=== PATIENT | male | born 1960 | race Caucasian/White ===

== ENCOUNTER 2021-07-18 18:28 | Inpatient (IN) | payer BC, OTHER ==
[~2021-07-18] VITALS: Ht 172.7 cm; Wt 88.8 kg
[2021-07-18] MEDS ORDERED: NS 2,730 ML in IV 1 EA IV ONE (19:30)
[2021-07-18] MEDS ORDERED: PIPERACILLIN/TAZOBACTAM SOD 4.5 GM in D5W MINI-BAG PLUS 50 ML IV ONE (19:30)
[2021-07-18 19:50] LABS: BASO # 0.1 10^3/uL (0.0-0.2); BASO % 0.4 % (0.0-1.0); EOS # 0.1 10^3/uL (0.0-0.5); EOS % 0.3 % (0.0-3.0); HEMATOCRIT 41.1 % (42.0-52.0); LYMPH # 0.4 10^3/uL (1.5-5.0); LYMPH % 2.3 % (24.0-44.0); MEAN CORPUSCULAR HEMOGLOBIN 31.7 pg (27.0-33.0); MEAN CORPUSCULAR HGB CONC 36.5 g/dl (32.0-36.5); MEAN CORPUSCULAR VOLUME 86.9 fl (80.0-96.0); MONO # 2.8 10^3/uL (0.0-0.8); MONO % 14.7 % (2.0-8.0); NEUTROPHILS # 15.4 10^3/uL (1.5-8.5); NEUTROPHILS % 80.9 % (36.0-66.0); PLATELET COUNT, AUTOMATED 364 10^3/uL (150-450); RED BLOOD COUNT 4.73 10^6/uL (4.30-6.10)
[2021-07-18 19:51] LABS: VENOUS BASE EXCESS -6.2 (-2.0-2.0); VENOUS HCO3 18.4 MEQ/L (23.0-27.0); VENOUS O2 SATURATION 73.9 % (60.0-80.0); VENOUS PARTIAL PRESSURE CO2 33.9 mmHg (38.0-50.0); VENOUS PARTIAL PRESSURE O2 35.5 mmHg (30.0-50.0); VENOUS PH 7.352 UNITS (7.330-7.430); VENOUS STANDARD HCO3 18.9 MEQ/L; VENOUS TOTAL CO2 19.4 MEQ/L (24.0-28.0)
--- NOTE | 2021-07-18 20:02 | REP ---
INDICATION: SEPSIS/SHOCK COMPARISON: None. TECHNIQUE: Portable AP view of the chest FINDINGS: The mediastinum and cardiac silhouette are within normal limits for portable technique. The lung izaguirre are clear without acute consolidation, effusion, or pneumothorax. Skeletal structures are intact. IMPRESSION: No acute cardiopulmonary process appreciated. <Electronically signed by Tom Fagan > 07/18/211958
--- NOTE | 2021-07-18 20:04 | REP ---
INDICATION: fall, infection COMPARISON: None. TECHNIQUE: AP and lateral right foot radiographs FINDINGS: Soft tissue swelling and significant subcutaneous emphysema primarily involving the medial aspect of the foot and surrounding the 1st toe. Findings are consistent with cellulitis/infectious process. Underlying osseous structures are grossly intact and without obvious acute fracture or dislocation. IMPRESSION: Soft tissue swelling and extensive subcutaneous emphysema along the medial aspect of the foot and primarily surrounding the 1st toe consistent with cellulitis/infectious process. <Electronically signed by Tom Fagan > 07/18/211999
[2021-07-18 20:13] LABS: INR 1.27; PROTHROMBIN TIME 16.3 SECONDS (12.7-14.5)
[2021-07-18 20:14] LABS: PARTIAL THROMBOPLASTIN TIME 33.1 SECONDS (25.9-37.0)
[2021-07-18 20:17] LABS: ERYTHROCYTE SEDIMENTATION RATE 61 mm/hr (0-20)
[2021-07-18 20:26] LABS: APPEARANCE, URINE HAZY (CLEAR); BACTERIA, URINE AUTO 1+ (NEGATIVE); BILIRUBIN, URINE AUTO NEGATIVE (NEGATIVE); BLOOD, URINE BLOOD 2+ (NEGATIVE); COLOR, URINE YELLOW (YELLOW); GLUCOSE, URINE (UA) AUTO 3+ mg/dL (NEGATIVE); KETONE, URINE AUTO 2+ mg/dL (NEGATIVE); LEUKOCYTE ESTERASE, URINE AUTO 2+ (NEGATIVE); NITRITE, URINE AUTO NEGATIVE (NEGATIVE); PROTEIN, URINE AUTO 2+ mg/dL (NEGATIVE); RBC, URINE AUTO 17 /HPF (0-3); SPECIFIC GRAVITY URINE AUTO 1.032 (1.002-1.035); SQUAMOUS EPITHELIAL CELL UR AU 1 /HPF (0-6); WBC, URINE AUTO 20 /HPF (0-3)
[2021-07-18 20:33] LABS: ALBUMIN 2.4 GM/DL (3.2-5.2); ALT/SGPT 28 U/L (12-78); AMYLASE 15 U/L (25-115); BILIRUBIN,DIRECT 0.4 MG/DL (0.0-0.2); BILIRUBIN,TOTAL 0.8 MG/DL (0.2-1.0); BLOOD UREA NITROGEN 17 MG/DL (7-18); CALCIUM LEVEL 9.1 MG/DL (8.8-10.2); CARBON DIOXIDE LEVEL 20 MEQ/L (21-32); CHLORIDE LEVEL 100 MEQ/L (98-107); CK-MB VALUE MASS < 1.0 NG/ML (<3.6); CPK CREATINE PHOSPHOKINASE 37 U/L (39-308); CREATININE FOR GFR 0.97 MG/DL (0.70-1.30); GLOMERULAR FILTRATION RATE > 60.0 (>49); GLUCOSE, FASTING 327 MG/DL (70-100); POTASSIUM SERUM 4.4 MEQ/L (3.5-5.1); SODIUM LEVEL 133 MEQ/L (136-145); TOTAL PROTEIN 6.5 GM/DL (6.4-8.2); TROPONIN I < 0.02 NG/ML (< 0.10)
[2021-07-18 20:56] LABS: HEMOGLOBIN A1c 10.2 %
[2021-07-18 21:00] LABS: RSV AMPLIFICATION NEGATIVE (NEGATIVE)
[2021-07-18] MEDS ORDERED: BOOSTRIX/ADACEL VACCINE (DIPHTH/PERTUSS/ACELL/TETANUS) 0.5ML SYR IM ONE (21:25)
[2021-07-18] MEDS ORDERED: HOME MED LIST COMPLETE! XX SCH (21:55)
[2021-07-18] MEDS ORDERED: KETOROLAC 30 MG/ML 1ML VIAL IV PRN (22:00)
[2021-07-18] MEDS ORDERED: ONDANSETRON 4MG/2ML VIAL IV PRN (22:00)
[2021-07-18] MEDS ORDERED: GLUCOSE 4GM CHEW TABLET PO PRN (22:00)
[2021-07-18] MEDS ORDERED: DEXTROSE 50% 50 ML SYRINGE IV PRN (22:00)
[2021-07-18] MEDS ORDERED: MORPHINE 4 MG/ML 1ML VIAL/SYRINGE (J2270) IV PRN (22:00)
[2021-07-18] MEDS ORDERED: GLUCAGON INJ 1MG VIAL SC PRN (22:00)
[2021-07-18] MEDS ORDERED: VANCOMYCIN HCL 1,000 MG, VIAL MATE ADAPTER 1 EACH in NS 250 ML IV SCH (22:00)
[2021-07-18] MEDS ORDERED: MOM 30ML SUSPENSION UDC PO PRN (22:00)
[2021-07-18] MEDS ORDERED: MAALOX 30 ML SUSP *UDC PO PRN (22:00)
--- NOTE | 2021-07-18 22:08 | HPEPDOC ---
[facility] Medical History & Physical Date of Admission Jul 18, 2021 Date of Service: Jul 18, 2021 Attending Physician: AYESHA SNYDER MD History and Physical CHIEF COMPLAINT: [60 y/o male presents to ED after falling, c/o right foot and b/l knee pain] HISTORY OF PRESENT ILLNESS: [This is a 60 y/o male with no pmh who does not follow with a pcp who presents to our ED after a fall in which he could not get back up. Patient tells me that he has had several falls in the past few weeks that he believes are mechanical in nature. Patient states that after he fell today at work, he was not able to get up d/t severe pain in his knees, and thus EMS was called to bring him to our emergency department. Patient tells me that he has also noticed a wound on his right foot that began about a week ago but opened up approx 2 days ago. Patient states that the wound itself is not very painful and again restates that his pain is mostly in his knees. Patient admits to associated fevers, anorexia. Patient denies any chills, uri type sx, abd pain, n/v/d/c, paresthesias. Patient found to be septic in the ED with temp of 102.4, pulse in the 120s, leukocytosis of 19, lactic acidosis of 2.2, and obviously infected right foot ulcer. A1C drawn in the ED 10.2. ] PAST MEDICAL HISTORY: 1. [None - does not follow with pcp PAST SURGICAL HISTORY: 1. [None SOCIAL HISTORY: Tobacco use:[Denies] ETOH: [Occasional] Illicit drug use: [Denies] FAMILY HISTORY: Reviewed - none pertinent ALLERGIES: Please see below. REVIEW OF SYSTEMS: CONSTITUTIONAL: [See HPI]. HEENT: [Denies uri sx]. CARDIOVASCULAR: [Denies chest pain, palpitations]. RESPIRATORY: [Denies sob, wheezing]. GASTROINTESTINAL: [Denies abd pain, n/v/d/c]. GENITOURINARY: [Denies dysuria]. SKIN: [See HPI]. MUSCULOSKELETAL: [See HPI]. NEUROLOGICAL: [Denies syncope, paresthesias]. ENDOCRINE: [A1C in the ED 10.2]. HEMATOLOGIC/LYMPHATIC: [Denies hx of vte]. HOME MEDICATIONS: Please see below. PHYSICAL EXAMINATION: VITAL SIGNS: Please see below. GENERAL APPEARANCE: [This is an overweight 60 y/o male who is alert and oriented to all questioning. He does not appear to be in any distress.]. HEENT: [No mass or lesion. EOMI. No scleral icterus. Nares patent. Poor dentition. Oral mucosa moist.]. CARDIOVASCULAR: [Tachy rate, regular rhythm. No murmurs, rubs, gallops]. LUNGS: [Good air flow b/l. No wheezing, rales, rhonchi]. ABDOMEN: [Soft, nontender]. MUSCULOSKELETAL: [No joint deformity]. EXTREMITIES: [There is a large ulcer located on the medial side of the 1st MTP joint of the right foot. The ulcer is covered with black colored eschar and has some foul smelling serosanguineous discharge. The 1st and 2nd toes of the right foot are pallorous and the dital ends of the toes are purple. There is deep erythema of the foot surrounding the wound that has been marked with purple marker. The area is warm and tender. There is edema of the RLE. Pulses intact. ]. NEUROLOGICAL: [Speech clear. A+Ox3. No focal deficits.]. PSYCHIATRIC: [Mood and affect appear appropriate.]. LABORATORY DATA: See below. IMAGING: [CXR: FINDINGS: The mediastinum and cardiac silhouette are within normal limits for portable technique. The lung izaguirre are clear without acute consolidation, effusion, or pneumothorax. Skeletal structures are intact. IMPRESSION: No acute cardiopulmonary process appreciated. Toe XR: FINDINGS: Soft tissue swelling and significant subcutaneous emphysema primarily involving the medial aspect of the foot and surrounding the 1st toe. Findings are consistent with cellulitis/infectious process. Underlying osseous structures are grossly intact and without obvious acute fracture or dislocation. IMPRESSION: Soft tissue swelling and extensive subcutaneous emphysema along the medial aspect of the foot and primarily surrounding the 1st toe consistent with cellulitis/infectious process.] MICROBIOLOGY: Please see below. ASSESSMENT: [This is a 60 y/o male with no pmh who does not follow with a pcp who presents to our ED after a fall in which he could not get back up. Patient tells me that he has had several falls in the past few weeks that he believes are mechanical in nature. Patient found to be septic in the ED with temp of 102.4, pulse in the 120s, leukocytosis of 19, lactic acidosis of 2.2, and obviously infected right foot ulcer. A1C drawn in the ED 10.2.]. . PLAN: 1. [Sepsis 2/2 infected diabetic foot ulcer - Patient received 30cc/kg fluid bolus and one dose of zosyn in the ed - Will continue ivf on the floor - Vanco and zosyn for coverage for now pending mrsa pcr, wound cultures - Dr. Graham, podiatry, has been consulted by ED provider and plans to take patient to the OR in the morning for possible amputation - NPO after midnight - Toradol, morphine for pain - Zofran for nausea - Admit to pcu w tele for tx 2. Newly diagnosed DM - Patient's A1C 10.2 in the ED - Will be placed on sliding scale/hypoglycemic protocol while in the hospital - Patient will need to be dc'ed on oral antihyperglycemics and likely basal insulin and establish with a pcp outpatient 3. Recurrent falls - Potentially d/t diabetic neuropathy - PT/OT post op 4. Asymptomatic bacteruria - patient has +UA, however no symptoms - will unintentionally be covered by broad spectrum abx DVT prophylaxis - mechanical pre-op]. Vital Signs Vital Signs Date Time Temp Pulse Resp B/P (MAP) Pulse Ox O2 Delivery O2 Flow Rate FiO2 07/18/21 21:15 99.3 114 19 130/77 (94) 96 Laboratory Data Labs 24H Laboratory Tests 2 07/18/21 19:35: Coronavirus (COVID-19)(PCR) NEGATIVE, Influenza Type A (RT-PCR) NEGATIVE, Influenza Type B (RT-PCR) NEGATIVE, Respiratory Syncytial Virus (PCR) NEGATIVE 07/18/21 19:37: Immature Granulocyte % (Auto) 1.4, Neutrophils (%) (Auto) 80.9H, Lymphocytes (%) (Auto) 2.3L, Monocytes (%) (Auto) 14.7H, Eosinophils (%) (Auto) 0.3, Basophils (%) (Auto) 0.4, Neutrophils # (Auto) 15.4H, Lymphocytes # (Auto) 0.4L, Monocytes # (Auto) 2.8H, Eosinophils # (Auto) 0.1, Basophils # (Auto) 0.1, Nucleated Red Blood Cells % (auto) 0.0, Erythrocyte Sedimentation Rate 61H, Prothrombin Time 16.3H, Prothromb Time International Ratio 1.27, Activated Partial Thromboplast Time 33.1, Blood Gas Bicarbonate Standard 18.9, Venous Blood pH 7.352, Venous Blood Partial Pressure CO2 33.9L, Venous Blood Partial Pressure O2 35.5, Venous Blood Total Carbon Dioxide 19.4L, Venous Blood HCO3 18.4L, Venous Blood Oxygen Saturation 73.9, Venous Blood Base Excess -6.2L, Anion Gap 13, Glomerular Filtration Rate > 60.0, Estimated Mean Plasma Glucose 246H, Hemoglobin A1c 10.2, Lactic Acid Level 2.2*H, Calcium Level 9.1, Total Bilirubin 0.8, Direct Bilirubin 0.4H, Aspartate Amino Transf (AST/SGOT) 18, Alanine Aminotransferase (ALT/SGPT) 28, Alkaline Phosphatase 133H, Total Creatine Kinase 37L, Creatine Kinase MB < 1.0, Creatine Kinase MB Relative Index 2.70, Troponin I < 0.02, C- Reactive Protein, Quantitative 36.50H, Total Protein 6.5, Albumin 2.4L, Albumin/Globulin Ratio 0.6, Amylase Level 15L 07/18/21 19:47: Urine Color YELLOW, Urine Appearance HAZY, Urine pH 6.0, Urine Specific Hyde 1.032, Urine Protein 2+H, Urine Glucose (Auto)(UA) 3+H, Urine Ketones (Auto) 2+H, Urine Blood 2+H, Urine Nitrite NEGATIVE, Urine Bilirubin NEGATIVE, Urine Urobilinogen 2.0H, Urine Leukocyte Esterase (Auto) 2+H, Urine WBC (Auto) 20H, Urine RBC (Auto) 17H, Urine Hyaline Casts (Auto) 0, Urine Bacteria (Auto) 1+H, Urine Squamous Epithelial Cells 1, Urine Yeast-Like Cells (Auto) SMALLH, Urine Sperm (Auto) CBC/BMP Laboratory Tests 07/18/21 19:37 Microbiology Microbiology 07/18/21 Urine Culture, Received Pending 07/18/21 Blood Culture, Received Pending 07/18/21 Blood Culture, Received Pending Home Medications No Active Prescriptions or Reported Meds Allergies Coded Allergies: No Known Allergies (Verified Allergy, Unknown, 07/18/21) A-FIB/CHADSVASC A-FIB History Current/History of A-Fib/PAF?: No DOT ALEXANDRE Jul 18, 2021 22:08
[2021-07-18] MEDS: DOCUSATE SODIUM 100MG CAPSULE PO SCH (22:54)
[2021-07-18] MEDS ORDERED: VANCOMYCIN HCL 1,000 MG, VIAL MATE ADAPTER 1 EACH in NS 250 ML IV ONE (23:00)
[2021-07-18] MEDS: NS 1,000 ML IV SCH (23:00)
[2021-07-19] VITALS (9 sets, daily range): BP systolic 106–137; BP diastolic 63–91
[2021-07-19] MEDS ORDERED: VANCOMYCIN HCL 750 MG, VIAL MATE ADAPTER 1 EACH in NS 250 ML IV ONE ×3
[2021-07-19] MEDS: HumaLOG INSULIN (NovoLOG) PER UNIT SC SCH ×4 (00:25→18:00)
[2021-07-19] MEDS: PIPERACILLIN/TAZOBACTAM SOD 3.375 GM in D5W MINI-BAG PLUS 50 ML IV SCH ×4 (02:43→20:00)
[2021-07-19] MEDS: ACETAMINOPHEN TAB 650MG DOSE (2X325MG) PO PRN (03:04)
--- NOTE | 2021-07-19 05:35 | ECGEPIP ---
[facility] - ED Test Date: 2021-07-18 Pat Name: NILDA TRAN Department: Room: - Gender: Male Throw Out Clerk: : 1960 Requested By: DELANEY Hood Order Number: [id number] Reading MD: Otilio Flood Measurements Intervals Lag[place] Rate: 116 P: 50 ME: 162 QRS: -48 QRSD: 80 T: 10 QT: 324 QTc: 450 Interpretive Statements Sinus tachycardia Left axis deviation Low voltage QRS Septal infarct , age undetermined Inferior infarct , age undetermined NO PRIORS FOR COMPARISON Electronically Signed on 07-19-2021 5:34:37 EDT by Otilio Flood
[2021-07-19 05:40] LABS: HEMATOCRIT 36.9 % (42.0-52.0); HEMOGLOBIN 13.1 g/dl (13.5-17.5); MEAN CORPUSCULAR HEMOGLOBIN 31.6 pg (27.0-33.0); MEAN CORPUSCULAR HGB CONC 35.5 g/dl (32.0-36.5); MEAN CORPUSCULAR VOLUME 88.9 fl (80.0-96.0); PLATELET COUNT, AUTOMATED 335 10^3/uL (150-450); RED BLOOD COUNT 4.15 10^6/uL (4.30-6.10); WHITE BLOOD COUNT 17.7 10^3/uL (4.0-10.0)
[2021-07-19 06:12] LABS: BLOOD UREA NITROGEN 15 MG/DL (7-18); CALCIUM LEVEL 8.3 MG/DL (8.8-10.2); CARBON DIOXIDE LEVEL 13 MEQ/L (21-32); CHLORIDE LEVEL 112 MEQ/L (98-107); CREATININE FOR GFR 0.62 MG/DL (0.70-1.30); GLOMERULAR FILTRATION RATE > 60.0 (>49); GLUCOSE, FASTING 201 MG/DL (70-100); MAGNESIUM LEVEL 2.4 MG/DL (1.8-2.4); POTASSIUM SERUM 3.7 MEQ/L (3.5-5.1); SODIUM LEVEL 141 MEQ/L (136-145)
[2021-07-19] MEDS: NS 1,000 ML IV SCH ×2 (07:00→12:40)
--- NOTE | 2021-07-19 08:11 | IPN ---
PROGRESS NOTE DATE: 07/19/2021 SUBJECTIVE: The patient was febrile with 101.5 at 3 a.m. He denies any pain but there continues to be a malodorous discharge from the right foot, which is gangrenous. No chest pain, pressure, tightness, shortness of breath despite tachycardia. Patient denies any palpitations, lightheadedness or dizziness. OBJECTIVE: Vital signs: Temperature maximum 101.5, pulse 108, respiratory 20, blood pressure 117/65, 94% on room air. GENERAL: Patient is awake, alert, oriented to person, place and time. Disheveled appearing. Missing teeth, poor dentition. Dry mucous membranes with chapped lips. HEENT: No jugular venous distension (JVD), thyromegaly or cervical lymphadenopathy. LUNGS: Clear to auscultation with no wheezing, rales or rhonchi. HEART: S1, S2; sinus rhythm. ABDOMEN: Soft, nontender, nondistended. Positive bowel sounds. EXTREMITIES: No cyanosis. Patient's right foot has a significant amount of gangrene measuring about 4.5 x 3.5 cm on the right medial aspect at the base of the right first metatarsophalangeal (MTP) joint which is malodorous with cyanosis and bluish-purplish discoloration of the right foot, of the right big toe. Right foot has erythema up to the mid dorsal area with significant tenderness at the plantar aspect. LABORATORY DATA: Microbiology and imaging studies have been reviewed; please see the chart. ASSESSMENT AND PLAN: This is a 60-year-old male status post a fall, found to be septic with a temperature of 102.4, pulse 120 and leukocytosis of 19 with an infected right big toe gangrene and cellulitis of the right foot. IMPRESSION: 1. Infected right first metatarsophalangeal (MTP) joint, gangrene, diabetic foot infection with ulcer. Patient has been kept NPO overnight. Dr. Graham, nursing instructor, has been consulted for amputation, most likely transmetatarsal due to involvement of the dorsum of the foot. He is currently on IV vancomycin and Zosyn. Methicillin-resistant staph aureus (MRSA) screen is pending. On IV fluids and NPO; Toradol and morphine as needed for pain, antiemetics with Zofran as needed. 2. New-onset diabetes with A1c of 10.2 on sliding scale; hyperglycemic protocol, NPO for now, on IV fluids to prevent hyperglycemia. 3. Recurrent falls most likely secondary to neuropathy. 4. Asymptomatic bacteruria currently on vancomycin and Zosyn for gangrene diabetic foot infection of the first metatarsophalangeal (MTP) and right foot.
[2021-07-19] MEDS: DOCUSATE SODIUM 100MG CAPSULE PO SCH ×2 (09:00→21:24)
[2021-07-19] MEDS: VANCOMYCIN HCL 750 MG, VIAL MATE ADAPTER 1 EACH in NS 250 ML IV SCH ×2 (11:20→21:25)
[2021-07-19] MEDS: VANCOMYCIN HCL 500 MG in D5W MINI-BAG PLUS 100 ML IV SCH (12:40)
[2021-07-19] MEDS ORDERED: LIDOCAINE 1% MDV 20ML VIAL As Ordered ONE (15:58)
[2021-07-19] MEDS ORDERED: BUPIVACAINE HCL 0.5% 10ML VIAL As Ordered ONE (15:59)
--- NOTE | 2021-07-19 16:46 | CR ---
CONSULTATION DATE: 07/19/2021 REASON FOR CONSULTATION: Right foot infection. HISTORY OF PRESENT ILLNESS: Luis August is a 60-year-old male who was recently diagnosed with diabetes. He has a wound that he believes has been present for about a week. He had a previous infection which resolved. This wound has progressively worsened over the last seven days. He was admitted to ER, noted to be septic and has a necrotic foot. PAST MEDICAL HISTORY: None as patient does not follow up with a primary care physician. However, he likely has some underlying conditions. PAST SURGICAL HISTORY: None. SOCIAL HISTORY: Denies tobacco, occasional alcohol use. ALLERGIES: No known drug allergies. FAMILY HISTORY: Noncontributory. REVIEW OF SYSTEMS: Positive for fever, chills. Vitals: T-max is 102.4, presently 99.2. LABORATORY DATA: White blood cell count on admission was 19, today it 17.7. ESR 61, CRP 36.5. Hemoglobin A1c is 10.2. Blood cultures pending. Foot x-rays shows subcutaneous emphysema around the right first metatarsal. Lower extremity examination: There is significant edema and erythema to the right foot. There is black necrotic ulcer in the medial aspect of the first metatarsal head. ASSESSMENT: This is a 60-year-old diabetic male with right foot gangrene. PLAN: Patient is going to the OR now for first ray amputation, further care to follow.
[2021-07-19] MEDS ORDERED: MIDAZOLAM INJ 2MG/2ML VIAL (J2250 PER 1MG) As Ordered ONE (16:52)
[2021-07-19] MEDS ORDERED: ONDANSETRON 4MG/2ML VIAL As Ordered ONE (16:52)
[2021-07-19] MEDS ORDERED: LIDOCAINE 2% 100MG/5ML SDV (FOR ANES.) As Ordered ONE (16:52)
[2021-07-19] MEDS ORDERED: fentaNYL 100 MCG/2 ML INJECTION (J3010) As Ordered ONE (16:52)
[2021-07-19] MEDS ORDERED: propofoL 200 MG/20 ML VIAL As Ordered ONE (16:52)
[2021-07-19] MEDS ORDERED: KETAMINE HCL 200 MG/20 ML VIAL As Ordered ONE (17:15)
[2021-07-19] MEDS ORDERED: METOCLOPRAMIDE INJ 10MG/2ML VIAL (J2765 PER 1) As Ordered ONE (17:38)
[2021-07-19] MEDS ORDERED: HYDROmorphone HCL 2 MG/ML 1ML VIAL As Ordered ONE (17:44)
[2021-07-19] MEDS ORDERED: ACETAMINOPHEN 1000MG 100ML IV BTL (OFIRMEV) (J0131 PER 10MG) As Ordered ONE (17:46)
[2021-07-19] MEDS ORDERED: PERCOCET 5MG/325MG TAB PO PRN (18:35)
--- NOTE | 2021-07-19 19:55 | RO ---
OPERATIVE NOTE DATE OF OPERATION: 07/19/2021 PREOPERATIVE DIAGNOSIS: Right foot gangrene. POSTOPERATIVE DIAGNOSIS: Right foot gangrene. PROCEDURE: Right first ray amputation, second metatarsal excision and incision and drainage. SURGEON: Enzo Graham DPM SUPERINTENDENT RECREATION: None. ANESTHESIA: Monitored anesthesia care, preop injection of 20 mL of a 1:1 mixture of 1% lidocaine plain, 1/2% Marcaine plain. ESTIMATED BLOOD LOSS: 50 mL MATERIALS: 3-0 Vicryl . COMPLICATION: None. SPECIMEN: Right first ray, second metatarsal bone, aerobic and anaerobic cultures. INDICATIONS: Luis August is a 60-year-old male who was admitted to [facility] with right foot infection. He has necrotic tissue surrounding his hallux with x-ray findings of soft tissue gas. A decision was made to bring him to the operating room for amputation and incision and drainage. The patient's side and site were identified and marked in the preoperative area. Consent was reviewed and obtained. The risks, complications and alternatives to the procedure were explained to the patient in detail and all questions were answered. DESCRIPTION OF PROCEDURE: The patient was brought to the operating room and placed on the operating room table in supine position. Monitored anesthesia care was delivered by the anesthesia team. A preop injection of 20 mL of a 1:1 mixture of 1% Lidocaine plain and 1/2% Marcaine plain were injected into the right foot. The right foot was prepped and draped in normal sterile fashion. A tourniquet was applied to the right ankle and inflated at 250 mmHg. The hallux was disarticulated using a #15 blade at the metatarsophalangeal joint. Significant necrotic, purulent tissue was noted around this toe and the second metatarsal joint. A proximal incision was made along the medial aspect of the first metatarsal with gas and necrotic tissue and purulence running along the tendons. Using the bone saw, the distal aspect of the first and second metatarsals were transected. These were sent for pathology. Wound culture, aerobic and anaerobic was taken. The base of the proximal second phalanx was removed with sagittal saw as well. A #15 blade and rongeur were used to remove the necrotic fat, tendons, capsule and skin. The site was then irrigated with 3000 mL of pulse irrigation saline. Once no obvious further necrotic tissue or active purulent drainage was identified, the tourniquet was deflated. The Bovie was used to maintain hemostasis and a 3-0 Vicryl was used to ligate the small artery. The wound was packed with saline gauze. Dry gauze dressing was placed over the top. The patient was brought to PACU with vital signs stable, neurovascular status intact. He will be readmitted to the floor for continued IV antibiotics and monitoring. Will follow. STORM
[2021-07-19] MEDS: PERCOCET 5MG/325MG TAB PO PRN (20:20)
[2021-07-19] MEDS: LEVEMIR (INSULIN DETEMIR) 1 UNITS/0.01ML SC SCH (21:24)
[2021-07-20] VITALS: BP 113/89
[2021-07-20] MEDS: VANCOMYCIN HCL 500 MG in D5W MINI-BAG PLUS 100 ML IV SCH (00:50)
[2021-07-20] MEDS: HumaLOG INSULIN (NovoLOG) PER UNIT SC SCH ×5 (01:00→23:44)
[2021-07-20] MEDS: PIPERACILLIN/TAZOBACTAM SOD 3.375 GM in D5W MINI-BAG PLUS 50 ML IV SCH ×4 (02:25→20:43)
[2021-07-20 04:00] VITALS: BP 119/79
[2021-07-20 05:43] LABS: HEMATOCRIT 38.6 % (42.0-52.0); HEMOGLOBIN 13.6 g/dl (13.5-17.5); MEAN CORPUSCULAR HEMOGLOBIN 31.7 pg (27.0-33.0); MEAN CORPUSCULAR HGB CONC 35.2 g/dl (32.0-36.5); PLATELET COUNT, AUTOMATED 388 10^3/uL (150-450); RED BLOOD COUNT 4.29 10^6/uL (4.30-6.10); WHITE BLOOD COUNT 17.8 10^3/uL (4.0-10.0)
[2021-07-20 06:00] LABS: BLOOD UREA NITROGEN 15 MG/DL (7-18); CALCIUM LEVEL 8.4 MG/DL (8.8-10.2); CARBON DIOXIDE LEVEL 18 MEQ/L (21-32); CHLORIDE LEVEL 116 MEQ/L (98-107); CREATININE FOR GFR 0.62 MG/DL (0.70-1.30); GLOMERULAR FILTRATION RATE > 60.0 (>49); GLUCOSE, FASTING 162 MG/DL (70-100); MAGNESIUM LEVEL 2.4 MG/DL (1.8-2.4); POTASSIUM SERUM 4.1 MEQ/L (3.5-5.1); SODIUM LEVEL 143 MEQ/L (136-145)
[2021-07-20 08:00] VITALS: BP 130/63
[2021-07-20] MEDS: DOCUSATE SODIUM 100MG CAPSULE PO SCH ×2 (08:55→20:44)
--- NOTE | 2021-07-20 10:32 | IPN ---
PROGRESS NOTE DATE: 07/20/2021 SUBJECTIVE: Luis was seen in the PCU. He was admitted with a new diagnosis of probable type-2 diabetes, gas gangrene of his right foot requiring urgent amputation of his right great toe, undergoing right great toe amputation, second metatarsal excision, and incision and drainage. He is on Zosyn and Vancomycin. No fevers or chills. His leukocytosis is improving. He is not running a fever. His blood pressure has been stable. OBJECTIVE: VITAL SIGNS: Blood pressure 130/63, pulse 100, respiratory rate 18, 93% O2 saturation, 97.7 degrees. GENERAL APPEARANCE: He is alert, conversant, no distress. HEENT exam shows dentition is in poor repair. LUNGS: Clear. HEART: Regular rate and rhythm. ABDOMEN: Soft, nontender. No masses. EXTREMITIES: No peripheral edema. Right foot is dressed. LABS: Sodium 143, potassium 4.1, BUN 15, creatinine 0.6, glucose 162, white count 17.8, hemoglobin 13.6, platelets 388. Hemoglobin A1c 10.2%. Blood sugars have been in the 150s to 300 range. IMPRESSION AND PLAN: 1. Gas gangrene right foot status post first great toe amputation, second metatarsal excision, and drainage. Clinically he is improved. He is on Zosyn and Vancomycin. Cultures are pending. MRSA screen was negative. We might be able to get rid of the Vancomycin. White count is still high so we are going to continue this for at least another day. 2. Diabetes, probably type 2, new diagnosis/out of control. The patient will need diabetic teaching. He will need to be able to use insulin on discharge. Probably will be discharged just on the bedtime dose of basal insulin. Anticipate starting metformin prior to discharge. 3. Poor dentition. He will need to see a dentist after discharge. 4. The patient will need a primary care physician arranged prior to discharge. STORM
[2021-07-20] MEDS: metFORMIN (GLUCOPHAGE) 500MG TAB PO SCH ×2 (11:29→18:03)
[2021-07-20] MEDS: VANCOMYCIN HCL 1,000 MG, VIAL MATE ADAPTER 1 EACH in NS 250 ML IV SCH ×2 (11:33→18:03)
[2021-07-20 12:00] VITALS: BP 123/70
--- NOTE | 2021-07-20 12:01 | IPN ---
PROGRESS NOTE DATE: 07/20/2021 SUBJECTIVE: Patient is seen and examined at bedside. Denies overnight complaints. States his pain is controlled. OBJECTIVE: Vitals: T-max 100.2, presently 97.7. Labs: White cell count is 17.8. Lower extremity examination: Erythema and edema are improved. The wound bed is inspected, there is exposed bone. There is no necrotic tissue or malodor. ASSESSMENT: A 60-year-old male with gangrene of right foot status post first ray and second metatarsal amputation. PLAN: Await OR cultures, continue IV antibiotics, start Vashe and Hydrofera Blue dressing, change daily. Patient will likely require a return trip to the Operating Room. Will allow the wound to declare itself over the next day or two prior to this.
[2021-07-20] MEDS ORDERED: VANCOMYCIN HCL 750 MG, VIAL MATE ADAPTER 1 EACH in NS 250 ML IV ONE (13:00)
[2021-07-20] MEDS: ACETAMINOPHEN TAB 650MG DOSE (2X325MG) PO PRN ×2 (14:27→23:16)
[2021-07-20 16:00] VITALS: BP 128/70
[2021-07-20 20:00] VITALS: BP 121/74
[2021-07-20] MEDS: LEVEMIR (INSULIN DETEMIR) 1 UNITS/0.01ML SC SCH (20:49)
[2021-07-21] VITALS: BP 120/77
[2021-07-21] MEDS: PIPERACILLIN/TAZOBACTAM SOD 3.375 GM in D5W MINI-BAG PLUS 50 ML IV SCH ×4 (02:10→20:55)
[2021-07-21] MEDS: VANCOMYCIN HCL 1,000 MG, VIAL MATE ADAPTER 1 EACH in NS 250 ML IV SCH (03:39)
[2021-07-21 04:00] VITALS: BP 123/61
[2021-07-21 05:23] LABS: HEMATOCRIT 35.7 % (42.0-52.0); HEMOGLOBIN 12.8 g/dl (13.5-17.5); MEAN CORPUSCULAR HEMOGLOBIN 31.4 pg (27.0-33.0); MEAN CORPUSCULAR HGB CONC 35.9 g/dl (32.0-36.5); MEAN CORPUSCULAR VOLUME 87.5 fl (80.0-96.0); PLATELET COUNT, AUTOMATED 330 10^3/uL (150-450); RED BLOOD COUNT 4.08 10^6/uL (4.30-6.10)
[2021-07-21] MEDS: HumaLOG INSULIN (NovoLOG) PER UNIT SC SCH ×3 (06:00→17:01)
[2021-07-21 06:07] LABS: BLOOD UREA NITROGEN 8 MG/DL (7-18); CALCIUM LEVEL 7.8 MG/DL (8.8-10.2); CARBON DIOXIDE LEVEL 23 MEQ/L (21-32); CHLORIDE LEVEL 108 MEQ/L (98-107); CREATININE FOR GFR 0.43 MG/DL (0.70-1.30); GLOMERULAR FILTRATION RATE > 60.0 (>49); GLUCOSE, FASTING 98 MG/DL (70-100); MAGNESIUM LEVEL 1.9 MG/DL (1.8-2.4); SODIUM LEVEL 138 MEQ/L (136-145)
[2021-07-21] MEDS ORDERED: POTASSIUM CHLORIDE 10MEQ SR TABLET PO ONE ×2 (07:00→16:00)
[2021-07-21 08:06] VITALS: BP 129/76
[2021-07-21] MEDS: metFORMIN (GLUCOPHAGE) 500MG TAB PO SCH ×2 (08:10→17:05)
[2021-07-21] MEDS: DOCUSATE SODIUM 100MG CAPSULE PO SCH ×2 (08:10→21:00)
[2021-07-21] MEDS ORDERED: SLF 3 ML SYR IV PRN (09:10)
[2021-07-21] MEDS ORDERED: cefTRIAXone SOD 2 GM in D5W MINI-BAG PLUS 50 ML IV SCH (10:15)
--- NOTE | 2021-07-21 10:41 | IPN ---
PROGRESS NOTE DATE: 07/21/2021 SUBJECTIVE: Luis is about the same as yesterday. No fever, no chills, no shortness of breath. OBJECTIVE: VITAL SIGNS: Blood pressure 149/76, afebrile. Vital signs are stable. LUNGS: Clear. HEART: Regular rhythm. ABDOMEN: Soft, nontender. EXTREMITIES: The right lower extremity is dressed. LABORATORY DATA: White count 7.13, hemoglobin 12.8, platelets 330,000. Sodium 138, potassium 3, BUN 8, creatinine 0.4, glucose is 98. Blood sugar is down to 109 this morning. The wound grew heavy Group B Strep. IMPRESSION: 1. Gangrene of the right foot status post right great toe and second metatarsal amputation. I have reviewed Dr. Graham's notes. He anticipates the patient will likely require return to the Operating Room to address the wound. Will continue IV antibiotics changing to Rocephin 2 grams IV daily based upon the culture results. 2. Diabetes. Diabetic education has been ordered. He is on Metformin, insulin and sliding scale. Blood sugar was down to 109, if it stays low will stop the Detemir insulin. 3. Poor dentition. Needs a dentist after discharge, also needs a primary care provider.
[2021-07-21 12:11] VITALS: BP 129/67
[2021-07-21] MEDS: SLF 3 ML SYR IV SCH ×2 (13:37→20:56)
[2021-07-21 16:55] VITALS: BP 132/69
[2021-07-21 20:00] VITALS: BP 122/68
[2021-07-21] MEDS: LEVEMIR (INSULIN DETEMIR) 1 UNITS/0.01ML SC SCH (21:00)
[2021-07-22] MEDS: HumaLOG INSULIN (NovoLOG) PER UNIT SC SCH ×4 (00:20→18:35)
[2021-07-22] MEDS: PIPERACILLIN/TAZOBACTAM SOD 3.375 GM in D5W MINI-BAG PLUS 50 ML IV SCH ×4 (02:40→21:18)
[2021-07-22 04:00] VITALS: BP 132/71
[2021-07-22 06:36] LABS: HEMATOCRIT 38.5 % (42.0-52.0); HEMOGLOBIN 13.8 g/dl (13.5-17.5); MEAN CORPUSCULAR HEMOGLOBIN 31.7 pg (27.0-33.0); MEAN CORPUSCULAR HGB CONC 35.8 g/dl (32.0-36.5); MEAN CORPUSCULAR VOLUME 88.5 fl (80.0-96.0); PLATELET COUNT, AUTOMATED 378 10^3/uL (150-450); RED BLOOD COUNT 4.35 10^6/uL (4.30-6.10); WHITE BLOOD COUNT 11.5 10^3/uL (4.0-10.0)
[2021-07-22] MEDS: SLF 3 ML SYR IV SCH ×3 (06:55→21:19)
[2021-07-22 07:06] LABS: BLOOD UREA NITROGEN 6 MG/DL (7-18); CALCIUM LEVEL 8.2 MG/DL (8.8-10.2); CARBON DIOXIDE LEVEL 23 MEQ/L (21-32); CHLORIDE LEVEL 109 MEQ/L (98-107); CREATININE FOR GFR 0.48 MG/DL (0.70-1.30); GLOMERULAR FILTRATION RATE > 60.0 (>49); GLUCOSE, FASTING 111 MG/DL (70-100); MAGNESIUM LEVEL 2.2 MG/DL (1.8-2.4); SODIUM LEVEL 140 MEQ/L (136-145)
[2021-07-22] MEDS: metFORMIN (GLUCOPHAGE) 500MG TAB PO SCH ×2 (08:23→18:35)
[2021-07-22] MEDS: DOCUSATE SODIUM 100MG CAPSULE PO SCH ×2 (08:24→21:00)
[2021-07-22 08:28] VITALS: BP 124/65
[2021-07-22] MEDS ORDERED: POTASSIUM CHLORIDE 10MEQ SR TABLET PO ONE (10:50)
[2021-07-22] MEDS: PERCOCET 5MG/325MG TAB PO PRN ×2 (13:04→18:37)
[2021-07-22 14:16] VITALS: BP 128/69
--- NOTE | 2021-07-22 15:04 | IPN ---
PROGRESS NOTE DATE: 07/22/2021 SUBJECTIVE: Patient denies overnight complaints. Vitals are reviewed. He has remained afebrile. Labs are reviewed; white blood cell count is 11.5, CRP improving to 11.6. OBJECTIVE: Lower extremity examination: Erythema and edema are improved. Wound base is macerated. Hydrofera Blue was improperly placed on the surface of the wound but otherwise the wound is improved with some granular tissue. ASSESSMENT: A 60-year-old diabetic male status post first ray amputation. PLAN: Continue current dressing changes. Patient should be evaluated for care home or rehab. He is not able to easily transfer himself or ambulate without putting full weight on his foot. For now, continue antibiotics through IV.
--- NOTE | 2021-07-22 15:04 | IPN ---
PROGRESS NOTE DATE: 07/22/2021 SUBJECTIVE: Luis is seen in the PCU. No change in status. OBJECTIVE: VITAL SIGNS: Stable, afebrile. LUNGS: Clear. HEART: Regular rhythm. ABDOMEN: Soft, nontender. EXTREMITIES: The right foot is dressed. LABORATORY DATA: White count is down to 11.5, potassium is still only 3.0. C-reactive protein is down to 11.6. IMPRESSION: 1. Status post right great toe and second MTP joint amputation from a diabetic foot infection. Continue current antibiotic therapy. Dr. Graham in his note indicated patient is going back to the OR as soon as tomorrow, he has had breakfast today and he is not currently on the schedule. He did grow out Group B Strep and enterococcus on the culture. Will continue Zosyn which should be the appropriate antibiotic for each. 2. Diabetes, new diagnosis. He is currently on Detemir insulin and sliding scale insulin, we started Metformin. Blood sugars are in the acceptable range. He is getting diabetic teaching. At this point he thinks he knows how to do fingersticks but he has yet to inject himself with insulin. Diabetic teaching has been ordered.
[2021-07-22] MEDS: POTASSIUM CHLORIDE 10MEQ SR TABLET PO SCH (21:18)
[2021-07-22] MEDS: LEVEMIR (INSULIN DETEMIR) 1 UNITS/0.01ML SC SCH (21:19)
[2021-07-23] MEDS: HumaLOG INSULIN (NovoLOG) PER UNIT SC SCH ×5 (00:09→20:27)
[2021-07-23] MEDS: PIPERACILLIN/TAZOBACTAM SOD 3.375 GM in D5W MINI-BAG PLUS 50 ML IV SCH ×4 (02:17→20:02)
[2021-07-23] MEDS: SLF 3 ML SYR IV SCH ×3 (05:12→20:33)
[2021-07-23 06:00] VITALS: BP 119/75
[2021-07-23] MEDS: POTASSIUM CHLORIDE 10MEQ SR TABLET PO SCH ×2 (08:09→20:32)
[2021-07-23] MEDS: DOCUSATE SODIUM 100MG CAPSULE PO SCH ×2 (08:09→20:31)
[2021-07-23] MEDS: metFORMIN (GLUCOPHAGE) 500MG TAB PO SCH ×2 (08:09→17:06)
[2021-07-23] MEDS: PERCOCET 5MG/325MG TAB PO PRN ×2 (08:12→17:07)
--- NOTE | 2021-07-23 09:21 | IPN ---
PROGRESS NOTE DATE: 07/23/2021 SUBJECTIVE: Luis was seen by Dr. Graham yesterday. He did not plan to take him back to the OR now, it looks like he is just doing dressing changes. Recommended to continue IV antibiotics. [facility] because he is not able to easily transfer or ambulate without putting full weight on his foot. He needs to be nonweightbearing for now. OBJECTIVE: VITAL SIGNS: Afebrile. Vital signs are stable. LUNGS: Clear. HEART: Regular rhythm. ABDOMEN: Soft, nontender. EXTREMITIES: No peripheral edema. LABORATORY DATA: Labs are pending. Blood sugars are between 150 to 200. IMPRESSION: 1. Diabetic foot infection status post amputation. Continue his Zosyn. He grew out both enterococcus and Group B and both should be covered by the Zosyn. I would recommend IV antibiotics until Monday and then probable oral antibiotic. 2. Diabetes. Continue his current regimen. He is getting diabetic teaching. Blood sugars are coming under better control.
[2021-07-23 10:25] LABS: HEMATOCRIT 36.7 % (42.0-52.0); MEAN CORPUSCULAR HEMOGLOBIN 31.3 pg (27.0-33.0); MEAN CORPUSCULAR HGB CONC 35.4 g/dl (32.0-36.5); MEAN CORPUSCULAR VOLUME 88.2 fl (80.0-96.0); PLATELET COUNT, AUTOMATED 385 10^3/uL (150-450); RED BLOOD COUNT 4.16 10^6/uL (4.30-6.10); WHITE BLOOD COUNT 12.3 10^3/uL (4.0-10.0)
[2021-07-23 10:56] LABS: BLOOD UREA NITROGEN 5 MG/DL (7-18); CARBON DIOXIDE LEVEL 25 MEQ/L (21-32); CHLORIDE LEVEL 107 MEQ/L (98-107); CREATININE FOR GFR 0.39 MG/DL (0.70-1.30); GLOMERULAR FILTRATION RATE > 60.0 (>49); GLUCOSE, FASTING 173 MG/DL (70-100); MAGNESIUM LEVEL 2.2 MG/DL (1.8-2.4); POTASSIUM SERUM 3.6 MEQ/L (3.5-5.1); SODIUM LEVEL 140 MEQ/L (136-145)
--- NOTE | 2021-07-23 13:09 | IPN ---
PROGRESS NOTE DATE: 07/23/2021 Patient seen and examined. Denies overnight complaints. LOWER EXTREMITY EXAMINATION: Erythema and edema are improved. The wound is again macerated. ASSESSMENT: A 60-year-old diabetic male, status post 1st ray amputation. PLAN: Continue Hydrofera Blue, Vashe dressing changes daily. Hydrofera Blue is to be inside the wound only. Laying it on the skin is causing the maceration. For now continue intravenous (IV) antibiotics throughout the weekend. Will reassess Monday. Most likely he will be able to be discharged to a rehabilitation or nurse facility.
[2021-07-23 14:00] VITALS: BP 121/75
[2021-07-23] MEDS: LEVEMIR (INSULIN DETEMIR) 1 UNITS/0.01ML SC SCH (20:32)
[2021-07-23 21:39] VITALS: BP 124/73
[2021-07-24] MEDS: PIPERACILLIN/TAZOBACTAM SOD 3.375 GM in D5W MINI-BAG PLUS 50 ML IV SCH ×4 (01:19→20:28)
[2021-07-24 04:35] LABS: HEMATOCRIT 34.8 % (42.0-52.0); HEMOGLOBIN 12.2 g/dl (13.5-17.5); MEAN CORPUSCULAR HGB CONC 35.1 g/dl (32.0-36.5); MEAN CORPUSCULAR VOLUME 88.5 fl (80.0-96.0); PLATELET COUNT, AUTOMATED 398 10^3/uL (150-450); RED BLOOD COUNT 3.93 10^6/uL (4.30-6.10); WHITE BLOOD COUNT 11.4 10^3/uL (4.0-10.0)
[2021-07-24 04:57] LABS: BLOOD UREA NITROGEN 4 MG/DL (7-18); CREATININE FOR GFR 0.47 MG/DL (0.70-1.30); GLUCOSE, FASTING 193 MG/DL (70-100)
[2021-07-24 04:58] LABS: CALCIUM LEVEL 7.9 MG/DL (8.8-10.2); CARBON DIOXIDE LEVEL 25 MEQ/L (21-32); CHLORIDE LEVEL 110 MEQ/L (98-107); GLOMERULAR FILTRATION RATE > 60.0 (>49); POTASSIUM SERUM 3.7 MEQ/L (3.5-5.1); SODIUM LEVEL 139 MEQ/L (136-145)
[2021-07-24] MEDS: SLF 3 ML SYR IV SCH ×3 (05:04→20:29)
[2021-07-24 06:13] VITALS: BP 120/70
[2021-07-24] MEDS: HumaLOG INSULIN (NovoLOG) PER UNIT SC SCH ×4 (07:30→20:16)
[2021-07-24] MEDS: metFORMIN (GLUCOPHAGE) 500MG TAB PO SCH ×2 (08:00→17:13)
[2021-07-24] MEDS: DOCUSATE SODIUM 100MG CAPSULE PO SCH ×2 (09:00→20:17)
[2021-07-24] MEDS: POTASSIUM CHLORIDE 10MEQ SR TABLET PO SCH ×2 (09:02→20:29)
[2021-07-24 14:00] VITALS: BP 118/70
--- NOTE | 2021-07-24 16:56 | IPNPDOC ---
Subjective Date Seen The patient was seen on 07/24/21. Subjective Chief Complaint/HPI Mr. August is working with nursing to keep his body moving. He is getting out of bed with the [facility], but he is being careful not to bear weight on his recently operated foot. His blood glucose levels are coming under better control. He has no acute concerns. General: Reports: Normal Appetite Constitutional: Denies: Chills, Fever Pulmonary: Denies: Cough Cardiovascular: Denies: Chest Pain, Palpitations Genitourinary: Denies: Dysuria Psych: Reports: Mood Normal Objective Physical Examination General Exam: Positive: Alert, Cooperative (sitting at the edge of the bed talking to the nurse entered the room), No Acute Distress Eye Exam: Positive: Conjunctiva & lids normal; Negative: Sclera icteric ENT Exam: Positive: Atraumatic, Mucous membr. moist/pink Neck Exam: Positive: Supple; Negative: Lymphadenopathy Chest Exam: Positive: Clear to auscultation, Normal air movement Heart Exam: Positive: Rate Normal, Normal S1, Normal S2; Negative: Murmurs Abdomen Exam: Positive: Normal bowel sounds, Soft; Negative: Tenderness Extremity Exam: Positive: Other (there is a bulky dressing on his right foot that is clean dry and intact. I did not take it down.); Negative: Edema Neuro Exam: Positive: Normal Speech, Normal Tone Psych Exam: Positive: Mood NL, Oriented x 3 Assessment /Plan Assessment 1. Diabetic foot infection status post amputation. Continue his Zosyn. He grew out both enterococcus and Group B and both should be covered by the Zosyn. I would recommend IV antibiotics until Monday and then probable oral antibiotic. He should continue to cautiously work with physical and occupational therapy as long as he is able to not bear weight on his operated foot. 2. Diabetes. Continue his current regimen. He is getting diabetic teaching. Blood sugars are coming under better control. I increased his basal insulin by 7 units today. Continue insulin sliding scale. Plan/VTE VTE Prophylaxis Ordered?: Yes (teds and sequentials) VTE Exclusion Pharmacological: Bleeding Risk VS, I&O, 24H, Fishbone Vital Signs/I&O Vital Signs Date Time Temp Pulse Resp B/P (MAP) Pulse Ox O2 Delivery O2 Flow Rate FiO2 07/24/21 14:00 98.2 80 20 118/70 (86) 94 Room Air 07/19/21 21:30 97 I&O- Last 24 Hours up to 6 AM 07/24/21 06:00 Intake Total 1580 ml Balance 1580 ml Laboratory Data 24H LABS Laboratory Tests 2 07/23/21 19:41: Bedside Glucose (Misc Panel) 193H 07/24/21 04:19: Nucleated Red Blood Cells % (auto) 0.0, Anion Gap 4L, Glomerular Filtration Rate > 60.0, Calcium Level 7.9L, Magnesium Level 2.0 07/24/21 07:43: Bedside Glucose (Misc Panel) 160H 07/24/21 11:56: Bedside Glucose (Misc Panel) 188H 07/24/21 16:23: Bedside Glucose (Misc Panel) 189H CBC/BMP Laboratory Tests 07/24/21 04:19 Microbiology Microbiology 07/19/21 Gram Stain - Final, Complete 07/19/21 Wound Culture - Final, Complete Strep Agalactiae Group B Enterococcus Faecalis 07/18/21 Urine Culture - Final, Complete 07/18/21 Blood Culture - Final, Complete NO GROWTH AFTER 5 DAYS 07/18/21 Blood Culture - Final, Complete NO GROWTH AFTER 5 DAYS Hari Iverson MD Jul 24, 2021 4:56 pm
[2021-07-24] MEDS: LEVEMIR (INSULIN DETEMIR) 1 UNITS/0.01ML SC SCH (20:28)
[2021-07-24 22:00] VITALS: BP 149/80
[2021-07-25] MEDS: PIPERACILLIN/TAZOBACTAM SOD 3.375 GM in D5W MINI-BAG PLUS 50 ML IV SCH ×4 (01:44→20:20)
[2021-07-25] MEDS: SLF 3 ML SYR IV SCH ×3 (01:45→22:40)
[2021-07-25 06:00] VITALS: BP 146/76
--- NOTE | 2021-07-25 08:47 | IPN ---
PROGRESS NOTE DATE: 07/25/2021 SUBJECTIVE: Sukhdev is seen on [address] [place] still on IV Zosyn. No real change in his status. Blood sugars are coming down, they are generally less than 200 now. He does not feel he is able to inject his own insulin yet. OBJECTIVE: VITAL SIGNS: Afebrile. Vital signs stable. LUNGS: Clear. HEART: Regular rhythm. ABDOMEN: Soft and nontender. LABORATORY DATA: Labs look good today unremarkable. PLAN: Discontinue his IV Zosyn tomorrow and put him on p.o. Augmentin and he will need short term rehab.
[2021-07-25] MEDS: metFORMIN (GLUCOPHAGE) 500MG TAB PO SCH ×2 (08:53→17:16)
[2021-07-25] MEDS: HumaLOG INSULIN (NovoLOG) PER UNIT SC SCH ×4 (08:53→20:53)
[2021-07-25] MEDS: POTASSIUM CHLORIDE 10MEQ SR TABLET PO SCH ×2 (08:54→20:20)
[2021-07-25] MEDS: DOCUSATE SODIUM 100MG CAPSULE PO SCH ×2 (08:54→20:20)
[2021-07-25 10:17] LABS: HEMATOCRIT 38.2 % (42.0-52.0); HEMOGLOBIN 13.2 g/dl (13.5-17.5); MEAN CORPUSCULAR HEMOGLOBIN 31.1 pg (27.0-33.0); MEAN CORPUSCULAR HGB CONC 34.6 g/dl (32.0-36.5); MEAN CORPUSCULAR VOLUME 90.1 fl (80.0-96.0); PLATELET COUNT, AUTOMATED 422 10^3/uL (150-450); RED BLOOD COUNT 4.24 10^6/uL (4.30-6.10); WHITE BLOOD COUNT 10.3 10^3/uL (4.0-10.0)
[2021-07-25 10:38] LABS: BLOOD UREA NITROGEN 3 MG/DL (7-18); CALCIUM LEVEL 8.7 MG/DL (8.8-10.2); CARBON DIOXIDE LEVEL 28 MEQ/L (21-32); CHLORIDE LEVEL 106 MEQ/L (98-107); CREATININE FOR GFR 0.59 MG/DL (0.70-1.30); GLOMERULAR FILTRATION RATE > 60.0 (>49); GLUCOSE, FASTING 177 MG/DL (70-100); POTASSIUM SERUM 3.9 MEQ/L (3.5-5.1); SODIUM LEVEL 140 MEQ/L (136-145)
[2021-07-25 14:00] VITALS: BP 132/78
[2021-07-25 20:00] VITALS: BP 140/82
[2021-07-25] MEDS: LEVEMIR (INSULIN DETEMIR) 1 UNITS/0.01ML SC SCH (20:21)
[2021-07-26] MEDS: PIPERACILLIN/TAZOBACTAM SOD 3.375 GM in D5W MINI-BAG PLUS 50 ML IV SCH (01:59)
[2021-07-26 06:00] VITALS: BP 133/71
[2021-07-26] MEDS: SLF 3 ML SYR IV SCH ×3 (06:03→21:36)
[2021-07-26] MEDS: HumaLOG INSULIN (NovoLOG) PER UNIT SC SCH ×4 (08:00→21:00)
[2021-07-26] MEDS: DOCUSATE SODIUM 100MG CAPSULE PO SCH ×2 (08:01→21:00)
[2021-07-26] MEDS: POTASSIUM CHLORIDE 10MEQ SR TABLET PO SCH ×2 (08:01→21:35)
[2021-07-26] MEDS: AUGMENTIN 875 MG TAB PO SCH ×2 (08:01→21:35)
[2021-07-26] MEDS: metFORMIN (GLUCOPHAGE) 500MG TAB PO SCH ×2 (08:01→17:18)
--- NOTE | 2021-07-26 09:38 | IPN ---
PROGRESS NOTE DATE: 07/26/2021 SUBJECTIVE: Luis continues to improve. No fever or chills. No significant foot pain. His diabetes has come under better control as well. OBJECTIVE: VITAL SIGNS: Stable. Afebrile. LUNGS: Clear. HEART: Regular rhythm. ABDOMEN: Soft, nontender. EXTREMITIES: No peripheral edema. Foot is dressed. LABORATORY DATA: C-reactive protein is down to 3.6, blood sugars are generally less than 200, averaging around 150. IMPRESSION: 1. Diabetic foot infection status post amputation of right great toe secondary MTP joint. We finished the Zosyn today and starting Augmentin [address] Graham has given wound care instructions. Patient has no weightbearing, will need rehab setting. 2. Diabetes. Blood sugars are better controlled. He is on Metformin, Detemir and sliding scale. At this point, he is getting decreasing amounts of sliding scale coverage. I increased the Detemir insulin today, continue his Metformin. If blood sugars remain well-controlled the sliding scale and a.c. and h.s. fingersticks can be discontinued.
--- NOTE | 2021-07-26 13:10 | IPN ---
PROGRESS NOTE DATE: 07/26/2021 SUBJECTIVE: Patient seen and examined. Denies complaints. States there is no pain in his feet. OBJECTIVE: VITAL SIGNS: He remains afebrile. LOWER EXTREMITY EXAMINATION: Erythema and edema greatly improved. Wound base is free of necrotic tissue. Some exposed bone with some granulation tissue adjacent to it. LABORATORY DATA: White count 10.3. C-reactive protein (CRP) 3.68. ASSESSMENT: This is a 60-year-old diabetic male status post first ray and second metatarsal amputation. PLAN: Patient okay to be discharged to rehabilitation. Continue current wound care. He has been switched over to Augmentin, which is appropriate. He should follow up with me once discharged as outpatient.
[2021-07-26 14:00] VITALS: BP 130/73
[2021-07-26] MEDS: LEVEMIR (INSULIN DETEMIR) 1 UNITS/0.01ML SC SCH (21:36)
[2021-07-26 22:00] VITALS: BP 130/75
[2021-07-27] MEDS: SLF 3 ML SYR IV SCH ×3 (05:44→22:23)
[2021-07-27 06:00] VITALS: BP 128/75
[2021-07-27] MEDS: AUGMENTIN 875 MG TAB PO SCH ×2 (08:39→22:22)
[2021-07-27] MEDS: POTASSIUM CHLORIDE 10MEQ SR TABLET PO SCH ×2 (08:40→22:22)
[2021-07-27] MEDS: metFORMIN (GLUCOPHAGE) 500MG TAB PO SCH ×2 (08:40→17:38)
[2021-07-27] MEDS: DOCUSATE SODIUM 100MG CAPSULE PO SCH ×2 (08:41→21:00)
[2021-07-27] MEDS: HumaLOG INSULIN (NovoLOG) PER UNIT SC SCH ×2 (08:41→11:59)
--- NOTE | 2021-07-27 11:04 | IPNPDOC ---
Text Note Date of Service The patient was seen on 07/27/21. NOTE Subjective: Patient is a 60-year-old male who presented to the hospital with a diabetic foot ulcer. Patient continues to improve and is doing well today. Patient does not have any complaints today. Review of systems: General: Patient denies fevers HEENT: Patient denies headaches Cardiovascular: Patient denies chest pain Respiratory: Patient denies shortness of breath, cough GI: Patient denies abdominal pain, nausea, vomiting, diarrhea : Patient denies increased frequency or pain with urination Extremities: Patient denies swelling or pain in extremities Neurological: Patient denies numbness or tingling in legs Physical exam: Vitals: See below General: Alert and oriented male patient who was sitting up in bed when I walked in the room. Patient not appear to be in any acute distress. HEENT: Normocephalic, atraumatic, moist mucous membranes. Neck: No lymphadenopathy or thyromegaly Cardiac: Regular rate and rhythm, no murmurs, normal S1, normal S2 Pulm: Clear to auscultation bilaterally. No wheezes, rhonchi, rales Abd: Nondistended, nontender to palpation, normal bowel sounds Ext: No edema bilateral lower extremities, dressing on the right foot. Labs: See below Imaging: No new imaging has been performed Assessment/plan: 60-year-old male who presented to the hospital with a diabetic foot wound who is currently status post amputation of the right great toe. 1. Diabetic foot infection status post amputation of right great toe. Patient finished his course of Zosyn today and will be starting Augmentin 875/[address] Graham has given wound care instructions and patient can be discharged to a rehab setting. Patient is unable to bear weight on this foot at this time. 2. Diabetes mellitus. Blood sugars are better controlled. Currently on Metformin, detemir, and sliding scale. Patient's sliding scale coverage can be discontinued upon discharge. 3. Recurrent falls. Patient will need rehab. DVT Prophylaxis: Teds and sequentials Disposition: Pending placement either acute or subacute rehab. If patient is unable to go to acute rehab today, patient will be made SNF status. VS,Fishbone, I+O VS, Fishbone, I+O Vital Signs Date Time Temp Pulse Resp B/P (MAP) Pulse Ox O2 Delivery O2 Flow Rate FiO2 8/31/21 06:00 98.3 85 19 128/75 (92) 96 Room Air I&O- Last 24 Hours up to 6 AM 07/27/21 06:00 Intake Total 1360 ml Balance 1360 ml MILTON FISCHER DO Jul 27, 2021 11:04
[2021-07-27 14:00] VITALS: BP 126/74
[2021-07-27] MEDS: LEVEMIR (INSULIN DETEMIR) 1 UNITS/0.01ML SC SCH (22:22)
[2021-07-28 06:00] VITALS: BP 121/77
[2021-07-28] MEDS: SLF 3 ML SYR IV SCH ×3 (06:19→20:13)
[2021-07-28] MEDS: POTASSIUM CHLORIDE 10MEQ SR TABLET PO SCH ×2 (08:53→20:12)
[2021-07-28] MEDS: metFORMIN (GLUCOPHAGE) 500MG TAB PO SCH ×2 (08:53→17:30)
[2021-07-28] MEDS: AUGMENTIN 875 MG TAB PO SCH ×2 (08:53→20:11)
[2021-07-28] MEDS: DOCUSATE SODIUM 100MG CAPSULE PO SCH ×3 (08:53→20:11)
[2021-07-28] MEDS: LEVEMIR (INSULIN DETEMIR) 1 UNITS/0.01ML SC SCH (20:10)
[2021-07-29] MEDS: SLF 3 ML SYR IV SCH ×3 (04:55→21:46)
[2021-07-29 06:00] VITALS: BP 118/77
[2021-07-29] MEDS: metFORMIN (GLUCOPHAGE) 500MG TAB PO SCH ×2 (08:29→17:38)
[2021-07-29] MEDS: AUGMENTIN 875 MG TAB PO SCH ×2 (08:29→21:43)
[2021-07-29] MEDS: POTASSIUM CHLORIDE 10MEQ SR TABLET PO SCH ×2 (08:29→21:43)
[2021-07-29] MEDS: DOCUSATE SODIUM 100MG CAPSULE PO SCH ×3 (08:30→21:43)
[2021-07-29 20:45] VITALS: BP 136/83
[2021-07-29] MEDS: LEVEMIR (INSULIN DETEMIR) 1 UNITS/0.01ML SC SCH (21:43)
[2021-07-30 04:50] VITALS: BP 127/80
[2021-07-30] MEDS: SLF 3 ML SYR IV SCH ×3 (05:42→22:00)
[2021-07-30] MEDS: metFORMIN (GLUCOPHAGE) 500MG TAB PO SCH ×2 (08:19→18:09)
[2021-07-30] MEDS: AUGMENTIN 875 MG TAB PO SCH ×2 (08:19→20:39)
[2021-07-30] MEDS: POTASSIUM CHLORIDE 10MEQ SR TABLET PO SCH ×2 (08:19→20:39)
[2021-07-30] MEDS: DOCUSATE SODIUM 100MG CAPSULE PO SCH ×3 (08:19→20:39)
[2021-07-30 20:12] VITALS: BP 118/76
[2021-07-30] MEDS: LEVEMIR (INSULIN DETEMIR) 1 UNITS/0.01ML SC SCH (20:39)
[2021-07-31 04:46] VITALS: BP 117/75
[2021-07-31] MEDS: metFORMIN (GLUCOPHAGE) 500MG TAB PO SCH ×2 (08:47→18:09)
[2021-07-31] MEDS: POTASSIUM CHLORIDE 10MEQ SR TABLET PO SCH ×2 (08:47→21:35)
[2021-07-31] MEDS: AUGMENTIN 875 MG TAB PO SCH ×2 (08:47→21:35)
[2021-07-31] MEDS: DOCUSATE SODIUM 100MG CAPSULE PO SCH ×2 (08:47→21:00)
[2021-07-31] MEDS: LEVEMIR (INSULIN DETEMIR) 1 UNITS/0.01ML SC SCH (21:36)
[2021-08-01 06:00] VITALS: BP 106/73
[2021-08-01] MEDS: metFORMIN (GLUCOPHAGE) 500MG TAB PO SCH ×2 (08:14→17:00)
[2021-08-01] MEDS: POTASSIUM CHLORIDE 10MEQ SR TABLET PO SCH ×2 (08:14→20:18)
[2021-08-01] MEDS: AUGMENTIN 875 MG TAB PO SCH ×2 (08:14→20:18)
[2021-08-01] MEDS: DOCUSATE SODIUM 100MG CAPSULE PO SCH ×2 (08:15→20:19)
[2021-08-01] MEDS: LEVEMIR (INSULIN DETEMIR) 1 UNITS/0.01ML SC SCH (20:18)
[2021-08-01 21:00] VITALS: BP 110/74
[2021-08-02] MEDS: metFORMIN (GLUCOPHAGE) 500MG TAB PO SCH ×2 (08:05→17:45)
[2021-08-02] MEDS: DOCUSATE SODIUM 100MG CAPSULE PO SCH ×2 (08:05→21:00)
[2021-08-02] MEDS: POTASSIUM CHLORIDE 10MEQ SR TABLET PO SCH ×2 (08:05→21:59)
[2021-08-02 19:35] VITALS: BP 110/65
[2021-08-02] MEDS: LEVEMIR (INSULIN DETEMIR) 1 UNITS/0.01ML SC SCH (22:00)
[2021-08-03 05:47] VITALS: BP 109/70
[2021-08-03] MEDS: DOCUSATE SODIUM 100MG CAPSULE PO SCH ×2 (07:55→20:41)
[2021-08-03 08:08] LABS: BASO # 0.2 10^3/uL (0.0-0.2); BASO % 2.6 % (0.0-1.0); EOS # 0.3 10^3/uL (0.0-0.5); EOS % 3.6 % (0.0-3.0); HEMATOCRIT 40.8 % (42.0-52.0); HEMOGLOBIN 14.1 g/dl (13.5-17.5); LYMPH # 1.8 10^3/uL (1.5-5.0); LYMPH % 21.8 % (24.0-44.0); MEAN CORPUSCULAR HEMOGLOBIN 30.7 pg (27.0-33.0); MEAN CORPUSCULAR HGB CONC 34.6 g/dl (32.0-36.5); MEAN CORPUSCULAR VOLUME 88.7 fl (80.0-96.0); MONO # 0.8 10^3/uL (0.0-0.8); MONO % 10.2 % (2.0-8.0); NEUTROPHILS # 4.9 10^3/uL (1.5-8.5); NEUTROPHILS % 61.3 % (36.0-66.0); PLATELET COUNT, AUTOMATED 507 10^3/uL (150-450)
[2021-08-03 08:31] LABS: BLOOD UREA NITROGEN 13 MG/DL (7-18); CARBON DIOXIDE LEVEL 25 MEQ/L (21-32); CHLORIDE LEVEL 108 MEQ/L (98-107); CREATININE FOR GFR 0.62 MG/DL (0.70-1.30); GLOMERULAR FILTRATION RATE > 60.0 (>49); GLUCOSE, FASTING 144 MG/DL (70-100); MAGNESIUM LEVEL 2.3 MG/DL (1.8-2.4); POTASSIUM SERUM 4.6 MEQ/L (3.5-5.1); SODIUM LEVEL 138 MEQ/L (136-145)
[2021-08-03] MEDS: metFORMIN (GLUCOPHAGE) 500MG TAB PO SCH ×2 (08:39→18:14)
[2021-08-03] MEDS: POTASSIUM CHLORIDE 10MEQ SR TABLET PO SCH ×2 (08:39→20:40)
--- NOTE | 2021-08-03 11:11 | IPNPDOC ---
Text Note Date of Service The patient was seen on 08/03/21. NOTE Subjective: Patient is a 60-year-old male who presented to the hospital with a diabetic foot ulcer. Patient was made ALC status 1 week ago. Patient has been doing well for the past week. There was an issue with the patient's insurance which inhibited the patient from being discharged to a halfway facility for subacute rehabilitation. Patient's antibiotics were stopped few days ago and patient is otherwise feeling well. Review of systems: General: Patient denies fevers HEENT: Patient denies headaches Cardiovascular: Patient denies chest pain Respiratory: Patient denies shortness of breath, cough GI: Patient denies abdominal pain, nausea, vomiting, diarrhea : Patient denies increased frequency or pain with urination Extremities: Patient denies swelling or pain in extremities Neurological: Patient denies numbness or tingling in legs Physical exam: Vitals: See below General: Alert and oriented male patient who was sitting the bedside chair when I walked in. Patient did not appear to be in any acute distress. HEENT: Normocephalic, atraumatic, moist mucous membranes. Neck: No lymphadenopathy or thyromegaly Cardiac: Regular rate and rhythm, no murmurs, normal S1, normal S2 Pulm: Clear to auscultation bilaterally. No wheezes, rhonchi, rales Abd: Nondistended, nontender to palpation, normal bowel sounds Ext: No edema bilateral lower extremities, dressing on the right foot. Patient is neurovascularly intact distal to the dressing Labs: See below Imaging: No new imaging has been performed Assessment/plan: 60-year-old male presented to the hospital with diabetic foot wound who is currently status post amputation of the right great toe. 1. Diabetic foot infection status post amputation of the right great toe. Patient was on Augmentin and Zosyn for total of 14 days. Patient has wound care instructions ordered and can be discharged to rehab setting once a bed becomes available. Patient is nonweightbearing on his foot at this time. 2. Diabetes mellitus. Blood sugars are better controlled. Currently on Metformin, detemir and sliding scale. 3. Recurrent falls. Will need rehab. DVT Prophylaxis: Teds and sequentials Disposition: Pending placement and subacute rehab. Late entry: I received a message stating that the patient had been exposed to COVID-19 positive staff member on 07/26/2021. Because of this, the patient will be placed in quarantine until 08/09/2021. Patient was going to be placed in a rehab center most likely tomorrow however, because of this, he will need to come off Covid quarantine before he is able to go into a subacute rehab. I talked to the patient explained this to him. All questions were answered and patient expressed understanding. VS,Franchescae, I+O VS, Declanbone, I+O Laboratory Tests 08/03/21 07:37 Vital Signs Date Time Temp Pulse Resp B/P (MAP) Pulse Ox O2 Delivery O2 Flow Rate FiO2 08/03/21 05:47 97.1 76 18 109/70 (83) 94 Room Air I&O- Last 24 Hours up to 6 AM 08/03/21 06:00 Intake Total 1260 ml Output Total 0 ml Balance 1260 ml MILTON FISCHER DO Aug 03, 2021 11:11
[2021-08-03] MEDS: LEVEMIR (INSULIN DETEMIR) 1 UNITS/0.01ML SC SCH (20:41)
[2021-08-04 06:00] VITALS: BP 111/71
[2021-08-04] MEDS: POTASSIUM CHLORIDE 10MEQ SR TABLET PO SCH ×2 (08:39→19:59)
[2021-08-04] MEDS: metFORMIN (GLUCOPHAGE) 500MG TAB PO SCH ×2 (08:39→17:15)
[2021-08-04] MEDS: DOCUSATE SODIUM 100MG CAPSULE PO SCH ×2 (08:39→19:59)
[2021-08-04] MEDS: LEVEMIR (INSULIN DETEMIR) 1 UNITS/0.01ML SC SCH (19:59)
[2021-08-05 06:00] VITALS: BP 104/68
[2021-08-05] MEDS: metFORMIN (GLUCOPHAGE) 500MG TAB PO SCH ×2 (08:57→18:23)
[2021-08-05] MEDS: DOCUSATE SODIUM 100MG CAPSULE PO SCH ×2 (08:57→20:31)
[2021-08-05] MEDS: POTASSIUM CHLORIDE 10MEQ SR TABLET PO SCH ×2 (08:57→20:31)
[2021-08-05] MEDS: LEVEMIR (INSULIN DETEMIR) 1 UNITS/0.01ML SC SCH (20:31)
[2021-08-06 06:11] VITALS: BP 107/71
[2021-08-06] MEDS: POTASSIUM CHLORIDE 10MEQ SR TABLET PO SCH ×2 (08:05→21:40)
[2021-08-06] MEDS: metFORMIN (GLUCOPHAGE) 500MG TAB PO SCH ×2 (08:05→18:31)
[2021-08-06] MEDS: DOCUSATE SODIUM 100MG CAPSULE PO SCH ×2 (08:06→21:00)
[2021-08-06] MEDS: LEVEMIR (INSULIN DETEMIR) 1 UNITS/0.01ML SC SCH (21:40)
[2021-08-07 03:55] VITALS: BP 114/71
[2021-08-07] MEDS: DOCUSATE SODIUM 100MG CAPSULE PO SCH ×2 (09:00→21:00)
[2021-08-07] MEDS: POTASSIUM CHLORIDE 10MEQ SR TABLET PO SCH ×2 (09:47→22:15)
[2021-08-07] MEDS: metFORMIN (GLUCOPHAGE) 500MG TAB PO SCH ×2 (09:47→17:22)
[2021-08-07 16:00] VITALS: BP 101/68
[2021-08-07] MEDS: LEVEMIR (INSULIN DETEMIR) 1 UNITS/0.01ML SC SCH (21:00)
[2021-08-07 21:58] VITALS: BP 118/81
[2021-08-08 06:12] VITALS: BP 117/81
[2021-08-08] MEDS: POTASSIUM CHLORIDE 10MEQ SR TABLET PO SCH ×2 (07:44→21:50)
[2021-08-08] MEDS: metFORMIN (GLUCOPHAGE) 500MG TAB PO SCH ×2 (07:44→16:53)
[2021-08-08] MEDS: DOCUSATE SODIUM 100MG CAPSULE PO SCH ×2 (08:11→21:00)
[2021-08-08] MEDS: LEVEMIR (INSULIN DETEMIR) 1 UNITS/0.01ML SC SCH (21:50)
[2021-08-08 22:46] VITALS: BP 146/83
[2021-08-09] MEDS: ACETAMINOPHEN TAB 650MG DOSE (2X325MG) PO PRN (01:12)
[2021-08-09 06:42] VITALS: BP 120/72
[2021-08-09] MEDS: metFORMIN (GLUCOPHAGE) 500MG TAB PO SCH ×2 (08:51→17:16)
[2021-08-09] MEDS: DOCUSATE SODIUM 100MG CAPSULE PO SCH ×2 (08:52→20:57)
[2021-08-09] MEDS: POTASSIUM CHLORIDE 10MEQ SR TABLET PO SCH ×2 (08:52→20:59)
[2021-08-09] MEDS: LEVEMIR (INSULIN DETEMIR) 1 UNITS/0.01ML SC SCH (20:59)
[2021-08-09 22:50] VITALS: BP 124/80
[2021-08-10 06:39] VITALS: BP 117/76
[2021-08-10] MEDS: DOCUSATE SODIUM 100MG CAPSULE PO SCH ×2 (08:08→20:22)
[2021-08-10] MEDS: POTASSIUM CHLORIDE 10MEQ SR TABLET PO SCH ×2 (08:08→20:21)
[2021-08-10] MEDS: metFORMIN (GLUCOPHAGE) 500MG TAB PO SCH ×2 (08:08→18:05)
[2021-08-10 09:42] LABS: BASO # 0.2 10^3/uL (0.0-0.2); BASO % 2.3 % (0.0-1.0); EOS # 0.7 10^3/uL (0.0-0.5); EOS % 8.8 % (0.0-3.0); HEMATOCRIT 46.2 % (42.0-52.0); HEMOGLOBIN 16.2 g/dl (13.5-17.5); LYMPH # 2.1 10^3/uL (1.5-5.0); LYMPH % 27.6 % (24.0-44.0); MEAN CORPUSCULAR HEMOGLOBIN 30.7 pg (27.0-33.0); MEAN CORPUSCULAR HGB CONC 35.1 g/dl (32.0-36.5); MEAN CORPUSCULAR VOLUME 87.7 fl (80.0-96.0); MONO # 0.8 10^3/uL (0.0-0.8); MONO % 10.8 % (2.0-8.0); NEUTROPHILS # 3.8 10^3/uL (1.5-8.5); NEUTROPHILS % 50.1 % (36.0-66.0); PLATELET COUNT, AUTOMATED 309 10^3/uL (150-450); RED BLOOD COUNT 5.27 10^6/uL (4.30-6.10); WHITE BLOOD COUNT 7.5 10^3/uL (4.0-10.0)
[2021-08-10 10:12] LABS: ALBUMIN 3.3 GM/DL (3.2-5.2); ALT/SGPT 33 U/L (12-78); BILIRUBIN,TOTAL 0.5 MG/DL (0.2-1.0); BLOOD UREA NITROGEN 14 MG/DL (7-18); CALCIUM LEVEL 9.9 MG/DL (8.8-10.2); CARBON DIOXIDE LEVEL 21 MEQ/L (21-32); CHLORIDE LEVEL 107 MEQ/L (98-107); CREATININE FOR GFR 0.71 MG/DL (0.70-1.30); GLOMERULAR FILTRATION RATE > 60.0 (>49); GLUCOSE, FASTING 147 MG/DL (70-100); MAGNESIUM LEVEL 2.3 MG/DL (1.8-2.4); POTASSIUM SERUM 4.9 MEQ/L (3.5-5.1); SODIUM LEVEL 136 MEQ/L (136-145)
[2021-08-10] MEDS: LEVEMIR (INSULIN DETEMIR) 1 UNITS/0.01ML SC SCH (20:22)
[2021-08-10 22:51] VITALS: BP 135/92
[2021-08-11 06:21] VITALS: BP 134/82
[2021-08-11] MEDS: DOCUSATE SODIUM 100MG CAPSULE PO SCH ×2 (08:12→21:00)
[2021-08-11] MEDS: POTASSIUM CHLORIDE 10MEQ SR TABLET PO SCH ×2 (08:13→21:37)
[2021-08-11] MEDS: metFORMIN (GLUCOPHAGE) 500MG TAB PO SCH ×2 (08:14→17:15)
--- NOTE | 2021-08-11 11:09 | IPN ---
PROGRESS NOTE DATE: 08/11/2021 SUBJECTIVE: Luis is seen and examined. He was scheduled to go to rehab but this was delayed as he was exposed to COVID from a staff member. He has no symptoms of it and his follow-up test was negative. He has remained afebrile and most recent white cell count on 08/10 was 7.5. OBJECTIVE: Lower extremity examination: Erythema and edema are virtually resolved. Wound base has good granulation tissue continuing to form with minimal necrotic tissue and the bone is now partially covered by granulation tissue. ASSESSMENT: A 60-year-old diabetic male status post first ray amputation. PLAN: Continue Hydrofera Blue, Vashe dressings. He is okay to go to rehab once that is available and once discharged he should have follow-up with me in my office within a week.
--- NOTE | 2021-08-11 17:08 | IPNPDOC ---
Date Seen The patient was seen on 08/11/21. Progress Note Subjective: Patient is a 60-year-old male who presented to the hospital with a diabetic foot ulcer. He has been on quarantine for covid exposure until 08/09/21. He denies CP, palpitations, n/v/d. Physical exam: VITAL SIGNS: please see below General: NAD, comfortable HEENT: PERRLA, EOMI, sclerae clear Neck: supple, normal ROM, no JVD Respiratory: lungs CTAB, no wheeze, no rales, no crackles CVS: RRR, normal S1, S2, no murmurs Abdo: soft, no masses, no hepatosplenomegaly, BS+, no rebound tenderness Extremities: no edema. MSK: R foot dressings clean dry and intact. Neuro: no focal neuro deficits, moving all 4 extremities, CN2-12 intact. Strength 5/5 in all 4 extremities. No nystagmus. Psych: calm, cooperative, AAO x 3 Labs: See below Imaging: No new imaging has been performed Assessment/plan: 60-year-old male presented to the hospital with diabetic foot wound who is currently status post amputation of the right great toe. 1. Diabetic foot infection status post amputation of the right great toe. Patient was on Augmentin and Zosyn for total of 14 days. Patient has wound care instructions ordered and can be discharged to rehab setting once a bed becomes available. Patient can partial weight bear on heel of R foot. Has been seen by Dr. Graham on 08/11/21. To follow up in 1 week after DC. 2. Diabetes mellitus. Blood sugars are better controlled. Currently on Metformin, detemir and sliding scale. 3. Recurrent falls. Will need rehab. DVT Prophylaxis: Teds and sequentials Disposition: Pending placement. ALC status. Late entry: Patient was exposed to COVID-19 positive staff member on 07/26/2021. He was in quarantine until 08/09/21. PFS has been working on subacute rehab, however, pending VS, I&O, 24H, Fishbone Vital Signs/I&O Vital Signs Date Time Temp Pulse Resp B/P (MAP) Pulse Ox O2 Delivery O2 Flow Rate FiO2 08/11/21 06:21 96.9 80 19 134/82 (99) 95 9/14/21 22:51 Room Air I&O- Last 24 Hours up to 6 AM 08/11/21 06:00 Intake Total 2280 ml Balance 2280 ml Laboratory Data 24H LABS Laboratory Tests 2 08/10/21 19:51: Bedside Glucose (Misc Panel) 199H 08/11/21 05:37: Bedside Glucose (Misc Panel) 131H 08/11/21 11:31: Bedside Glucose (Misc Panel) 150H 08/11/21 16:44: Bedside Glucose (Misc Panel) 167H ROBERT SAWANT MD Aug 11, 2021 17:08
[2021-08-11] MEDS: LEVEMIR (INSULIN DETEMIR) 1 UNITS/0.01ML SC SCH (21:36)
[2021-08-12] MEDS: DOCUSATE SODIUM 100MG CAPSULE PO SCH ×2 (08:09→21:00)
[2021-08-12] MEDS: POTASSIUM CHLORIDE 10MEQ SR TABLET PO SCH ×2 (08:09→22:39)
[2021-08-12] MEDS: metFORMIN (GLUCOPHAGE) 500MG TAB PO SCH ×2 (08:09→17:58)
[2021-08-12] MEDS: LEVEMIR (INSULIN DETEMIR) 1 UNITS/0.01ML SC SCH (22:39)
[2021-08-13 06:51] VITALS: BP 120/56
[2021-08-13 08:27] LABS: BASO # 0.2 10^3/uL (0.0-0.2); BASO % 2.3 % (0.0-1.0); EOS # 0.6 10^3/uL (0.0-0.5); EOS % 9.6 % (0.0-3.0); HEMATOCRIT 44.4 % (42.0-52.0); HEMOGLOBIN 15.4 g/dl (13.5-17.5); LYMPH # 2.1 10^3/uL (1.5-5.0); MEAN CORPUSCULAR HEMOGLOBIN 30.8 pg (27.0-33.0); MEAN CORPUSCULAR HGB CONC 34.7 g/dl (32.0-36.5); MEAN CORPUSCULAR VOLUME 88.8 fl (80.0-96.0); MONO # 0.7 10^3/uL (0.0-0.8); MONO % 10.8 % (2.0-8.0); NEUTROPHILS % 44.8 % (36.0-66.0); PLATELET COUNT, AUTOMATED 269 10^3/uL (150-450); WHITE BLOOD COUNT 6.7 10^3/uL (4.0-10.0)
[2021-08-13 08:54] LABS: BLOOD UREA NITROGEN 15 MG/DL (7-18); CALCIUM LEVEL 9.4 MG/DL (8.8-10.2); CARBON DIOXIDE LEVEL 26 MEQ/L (21-32); CHLORIDE LEVEL 106 MEQ/L (98-107); GLOMERULAR FILTRATION RATE > 60.0 (>49); GLUCOSE, FASTING 152 MG/DL (70-100); MAGNESIUM LEVEL 2.3 MG/DL (1.8-2.4); POTASSIUM SERUM 4.5 MEQ/L (3.5-5.1); SODIUM LEVEL 135 MEQ/L (136-145)
[2021-08-13] MEDS: DOCUSATE SODIUM 100MG CAPSULE PO SCH ×3 (09:00→22:51)
[2021-08-13] MEDS: POTASSIUM CHLORIDE 10MEQ SR TABLET PO SCH ×2 (09:43→22:51)
[2021-08-13] MEDS: metFORMIN (GLUCOPHAGE) 500MG TAB PO SCH ×2 (09:43→18:34)
[2021-08-13 14:00] VITALS: BP 119/74
[2021-08-13] MEDS: LEVEMIR (INSULIN DETEMIR) 1 UNITS/0.01ML SC SCH (22:52)
[2021-08-14 06:00] VITALS: BP 120/68
[2021-08-14] MEDS: metFORMIN (GLUCOPHAGE) 500MG TAB PO SCH ×2 (07:50→17:46)
[2021-08-14] MEDS: DOCUSATE SODIUM 100MG CAPSULE PO SCH ×2 (07:51→22:13)
[2021-08-14] MEDS: POTASSIUM CHLORIDE 10MEQ SR TABLET PO SCH ×2 (07:51→22:13)
[2021-08-14] MEDS ORDERED: POTA-136 PO (14:54)
[2021-08-14] MEDS ORDERED: METF500T13 PO (14:54)
[2021-08-14] MEDS ORDERED: BASA100I SC (14:54)
[2021-08-14] MEDS ORDERED: DOCU100C16 PO (14:54)
[2021-08-14] MEDS ORDERED: ACET1TAB55 PO (14:54)
[2021-08-14] MEDS ORDERED: PEN1MIS23 SC (15:04)
[2021-08-14] MEDS ORDERED: LANC30MI XX (15:04)
[2021-08-14] MEDS ORDERED: ALCOPAD25 TOP (15:04)
[2021-08-14] MEDS ORDERED: BLOOKIT21 XX (15:04)
[2021-08-14] MEDS ORDERED: GLUC1TES2 XX (15:04)
--- NOTE | 2021-08-14 15:22 | DS.PDOC ---
Discharge Summary General Date of Admission Jul 18, 2021 at 22:00 Date of Discharge 08/14/21 Discharge Summary PROCEDURES PERFORMED DURING STAY: [None]. ADMITTING DIAGNOSES: Sepsis secondary to infected diabetic foot ulcer Diabetic foot ulcer Newly diagnosed diabetes type 2 Recurrent falls Symptomatic bacteriuria DISCHARGE DIAGNOSES: Sepsis secondary to infected diabetic foot ulcer Diabetic foot ulcer Newly diagnosed diabetes type 2 Recurrent falls Symptomatic bacteriuria Covid-19 exposure COMPLICATIONS/CHIEF COMPLAINT: Diabetic Foot Infection. HISTORY OF PRESENT ILLNESS: "This is a 60 y/o male with no pmh who does not follow with a pcp who presents to our ED after a fall in which he could not get back up. Patient tells me that he has had several falls in the past few weeks that he believes are mechanical in nature. Patient states that after he fell today at work, he was not able to get up d/t severe pain in his knees, and thus EMS was called to bring him to our emergency department. Patient tells me that he has also noticed a wound on his right foot that began about a week ago but opened up approx 2 days ago. Patient states that the wound itself is not very painful and again restates that his pain is mostly in his knees. Patient admits to associated fevers, anorexia. Patient denies any chills, uri type sx, abd pain, n/v/d/c, paresthesias. Patient found to be septic in the ED with temp of 102.4, pulse in the 120s, leukocytosis of 19, lactic acidosis of 2.2, and obviously infected right foot ulcer. A1C drawn in the ED 10.2. " HOSPITAL COURSE: 1. Diabetic foot infection status post amputation of the right great toe. Patient was on Augmentin and Zosyn for total of 14 days. Patient has wound care instructions provided. His was trained on dressing changes and ambulation. Last seen by PT on 08/14/21, given crutches. Foot examined on 08/14/21. Wound base is partially covered by granulation tissue. Wound borders and base are free of erythema and edema. Can partial weight bear on R heel per Dr. Graham. 2. Diabetes mellitus. Blood sugars are better controlled. Currently on Metformin, levemir 20 units qhs. Given rx for basaglar 20 units qhs. Needs close PCP follow up. [facility] to assist on DC. 3. Recurrent falls: cleared by PT to return home with crutches. 4. Covid-19 exposure: exposed from staff member. Follow up covid testing negative. Has remained asymptomatic and afebrile. DVT Prophylaxis: Teds and sequentials DISCHARGE MEDICATIONS: Please see below. ALLERGIES: Please see below. PHYSICAL EXAMINATION ON DISCHARGE: VITAL SIGNS: please see below General: NAD, comfortable HEENT: PERRLA, EOMI, sclerae clear Neck: supple, normal ROM, no JVD Respiratory: lungs CTAB, no wheeze, no rales, no crackles CVS: RRR, normal S1, S2, no murmurs Abdo: soft, no masses, no hepatosplenomegaly, BS+, no rebound tenderness Extremities: no edema, pulses 2+ MSK: no joint deformities, normal ROM. R great toe ray amputation. Wound base abrams s partially covered with granulation tissues. Edema and erythema have resolved. Pulses 2+ on both feet. Neuro: no focal neuro deficits, moving all 4 extremities, CN2-12 intact. Strength 5/5 in all 4 extremities. No nystagmus. Psych: calm, cooperative, AAO x 3 LABORATORY DATA: Please see below. IMAGING: R foot AP XR (07/18/21): Soft tissue swelling and extensive subcutaneous emphysema along the medial aspect of the foot and primarily surrounding the 1st toe consistent with cell ulitis/infectious process. CXR (07/18/21): IMPRESSION: No acute cardiopulmonary process appreciated. PROGNOSIS: good ACTIVITY: As tolerated DIET: consistent carbohydrate diet DISCHARGE PLAN: Discharge home with follow-up in Dr. Graham clinic in 1 week. Cleared by PT to go home with with crutches. Given prescription for Basaglar 20 units at night. Also started on Metformin patient will need to follow-up with primary care doctor. Disha RESENDEZ to assist with diet. DISPOSITION: Home with home health DISCHARGE INSTRUCTIONS: . Please follow-up with your primary care doctor within 3-5 days . Please follow-up with Dr. Graham in 1 week. . Please taking medications as prescribed. . If you develop bleeding, chest pain, shortness of breath, seizures, nausea, fevers, or otherwise worsening of your symptoms, please call 911 or return to the nearest emergency room DISCHARGE CONDITION: [Stable]. TIME SPENT ON DISCHARGE: 35-minutes Vital Signs/I&Os Vital Signs Date Time Temp Pulse Resp B/P (MAP) Pulse Ox O2 Delivery O2 Flow Rate FiO2 08/14/21 06:00 97.9 89 18 120/68 (85) 97 Room Air I&O- Last 24 Hours up to 6 AM 08/14/21 05:59 Intake Total 300 ml Balance 300 ml Laboratory Data Labs 24H Laboratory Tests 2 08/13/21 16:40: Bedside Glucose (Misc Panel) 189H 08/13/21 20:52: Bedside Glucose (Misc Panel) 134H 08/14/21 05:27: Bedside Glucose (Misc Panel) 120H 08/14/21 11:29: Bedside Glucose (Misc Panel) 176H FSBS Laboratory Tests Test 08/13/21 16:40 08/13/21 20:52 08/14/21 05:27 08/14/21 11:29 Range/Units Bedside Glucose (Misc Panel) 189 134 120 176 80-115 MG/DL Discharge Medications Scheduled Blood Sugar Diagnostic (Advanced Glucose Test Strips) 1 Each Strip, 100 STRIP XX ASDIRECTED Docusate Sodium (Docusate Sodium) 100 Mg Capsule, 100 MG PO BID Insulin Glargine,Hum.rec.anlog (Basaglar Kwikpen U-100) 100 Unit/1 Ml Insuln.pen, 20 UNIT SC QHS Metformin HCl (Metformin HCl) 500 Mg Tablet, 500 MG PO BID@08,18 Potassium Chloride (Klor-Con M10) 10 Meq Tab.er.prt, 20 MEQ PO BID Scheduled PRN Acetaminophen (Acetaminophen) 325 Mg Tablet, 650 MG PO Q4H PRN for MILD PAIN (1- 3) or TEMP > 101 Allergies Coded Allergies: No Known Allergies (Verified Allergy, Unknown, 07/18/21) ROBERT SAWANT MD Aug 14, 2021 15:22
[2021-08-14] MEDS: LEVEMIR (INSULIN DETEMIR) 1 UNITS/0.01ML SC SCH (22:14)
[2021-08-15 06:00] VITALS: BP 116/65
[2021-08-15] MEDS: DOCUSATE SODIUM 100MG CAPSULE PO SCH (08:12)
[2021-08-15] MEDS: metFORMIN (GLUCOPHAGE) 500MG TAB PO SCH (08:12)
[2021-08-15] MEDS: POTASSIUM CHLORIDE 10MEQ SR TABLET PO SCH (08:13)
--- NOTE | 2021-08-15 11:30 | IPNPDOC ---
Date Seen The patient was seen on 08/15/21. Progress Note SUBJECTIVE: Patient was seen examined at bedside. Patient is being discharged today. He is alert oriented and without pain or discomfort. He is afebrile. Normotensive. Patient's is present today for diabetic training. They are trying to inject insulin. OBJECTIVE PHYSICAL EXAMINATION: VITAL SIGNS: please see below General: NAD, comfortable HEENT: PERRLA, EOMI, sclerae clear Neck: supple, normal ROM, no JVD Respiratory: lungs CTAB, no wheeze, no rales, no crackles CVS: RRR, normal S1, S2, no murmurs Abdo: soft, no masses, no hepatosplenomegaly, BS+, no rebound tenderness Extremities: no edema, pulses 2+ MSK: no joint deformities, normal ROM. R great toe ray amputation. Wound base has partially covered with granulation tissues. Edema and erythema have resolved. Pulses 2+ on both feet. Neuro: no focal neuro deficits, moving all 4 extremities, CN2-12 intact. Strength 5/5 in all 4 extremities. No nystagmus. Psych: calm, cooperative, AAO x 3 LABORATORY DATA, IMAGING STUDIES, MICROBIOLOGY: Please see below. ASSESSMENT AND PLAN: 60-year-old male presented to the hospital with diabetic foot wound who is currently status post amputation of the right great toe. PROBLEMS: 1. Diabetic foot infection status post amputation of the right great toe. Patient was on Augmentin and Zosyn for total of 14 days. Patient has wound care instructions provided. His was trained on dressing changes and ambulation. Last seen by PT on 08/14/21, given crutches. Foot examined on 08/14/21. Wound base is partially covered by granulation tissue. Wound borders and base are free of erythema and edema. Can partial weight bear on R heel per Dr. Graham. 2. Diabetes mellitus. Blood sugars are better controlled. Currently on Metformin, levemir 20 units qhs. Given rx for basaglar 20 units qhs. Needs close PCP follow up. [facility] to assist on DC. 3. Recurrent falls: cleared by PT to return home with crutches. 4. Covid-19 exposure: exposed from staff member. Follow up covid testing negative. Has remained asymptomatic and afebrile. DVT Prophylaxis: Teds and sequentials Dispo: Patient for discharge today. Diabetic supplies sent and training provided. VS, I&O, 24H, Fishbone Vital Signs/I&O Vital Signs Date Time Temp Pulse Resp B/P (MAP) Pulse Ox O2 Delivery O2 Flow Rate FiO2 08/15/21 06:00 97.9 81 20 116/65 (82) 94 Room Air I&O- Last 24 Hours up to 6 AM 08/15/21 06:00 Intake Total 1980 ml Balance 1980 ml Laboratory Data 24H LABS Laboratory Tests 2 08/14/21 16:38: Bedside Glucose (Misc Panel) 171H 08/14/21 20:33: Bedside Glucose (Misc Panel) 158H 08/15/21 06:18: Bedside Glucose (Misc Panel) 133H ROBRET SAWANT MD Aug 15, 2021 11:30
== END 2021-08-15 13:00 | disposition home health service (06) | DRG 710 ==
LOC: EDBD 18:28 → M ED 18:28 → M ED INP 22:00 → ENRESERV 07-19 00:37 → M PCU 07-19 03:57 → M MS5PR 07-22 09:51
PROVIDERS: ADMIT Internal Medicine; ATTEND Family Medicine
PROC: 0Y6R0Z2 Detachment at Right 2nd Toe, Mid, Open Approach (ICD-10-PCS; 2021-07-19)
PROC: 0SBM0ZX Excision of Right Metatarsal-Phalangeal Joint, Open Approach, Diagnostic (ICD-10-PCS; 2021-07-19)
PROC: 0Y6P0Z0 Detachment at Right 1st Toe, Complete, Open Approach (ICD-10-PCS; principal; 2021-07-19 16:15)
DX: A41.9 Sepsis, unspecified organism (principal); A48.0 Gas gangrene; E11.52 Type 2 diabetes mellitus with diabetic peripheral angiopathy with gangrene; E11.42 Type 2 diabetes mellitus with diabetic polyneuropathy; E11.621 Type 2 diabetes mellitus with foot ulcer; L97.519 Non-pressure chronic ulcer of other part of right foot with unspecified severity; R82.71 Bacteriuria; Z20.822 Contact with and (suspected) exposure to COVID-19; L03.031 Cellulitis of right toe; R29.6 Repeated falls; K08.9 Disorder of teeth and supporting structures, unspecified

== ENCOUNTER → 2021-09-03 | Outpatient (CLI) | payer BC ==
[~2021-09-03] MED LIST: ACET1TAB55 PO; ALCOPAD25 TOP; BASA100I SC; BLOOKIT21 XX; DOCU100C16 PO; GLUC1TES2 XX; LANC30MI XX; METF500T13 PO; PEN1MIS23 SC; POTA-136 PO
[2021-09-03 16:03] LABS: CHOLESTEROL RISK RATIO 2.61 (<5)
== END ==
LOC: M PLALAB 11:23
PROVIDERS: ATTEND Nurse Practitioner Family
DX: Z13.220 Encounter for screening for lipoid disorders (principal); Z12.5 Encounter for screening for malignant neoplasm of prostate
CPT/HCPCS: 36415; 80061; G0103

== ENCOUNTER → 2021-11-05 | Outpatient (CLI) | payer BC ==
[2021-11-05 13:31] LABS: HEMOGLOBIN A1c 5.6 %
[2021-11-05 15:02] LABS: MAU/CREAT RATIO 262.4 MCG/MG (0.0-30.0)
== END ==
LOC: M LAB 11:14
PROVIDERS: ATTEND Nurse Practitioner Family
DX: E11.65 Type 2 diabetes mellitus with hyperglycemia (principal)

== ENCOUNTER → 2022-02-24 | Outpatient (CLI) | payer BC ==
[2022-02-24 10:36] LABS: BASO # 0.1 10^3/uL (0.0-0.2); BASO % 1.5 % (0.0-1.0); EOS # 0.3 10^3/uL (0.0-0.5); EOS % 4.2 % (0.0-3.0); HEMATOCRIT 43.6 % (42.0-52.0); HEMOGLOBIN 15.2 g/dl (13.5-17.5); LYMPH # 1.8 10^3/uL (1.5-5.0); LYMPH % 26.5 % (24.0-44.0); MEAN CORPUSCULAR HGB CONC 34.9 g/dl (32.0-36.5); MEAN CORPUSCULAR VOLUME 86.2 fl (80.0-96.0); MONO # 0.6 10^3/uL (0.0-0.8); MONO % 9.6 % (2.0-8.0); NEUTROPHILS # 3.9 10^3/uL (1.5-8.5); NEUTROPHILS % 57.9 % (36.0-66.0); PLATELET COUNT, AUTOMATED 321 10^3/uL (150-450); RED BLOOD COUNT 5.06 10^6/uL (4.30-6.10); WHITE BLOOD COUNT 6.7 10^3/uL (4.0-10.0)
[2022-02-24 12:00] LABS: ALBUMIN 3.6 GM/DL (3.2-5.2); ALT/SGPT 27 U/L (12-78); BILIRUBIN,TOTAL 0.7 MG/DL (0.2-1.0); BLOOD UREA NITROGEN 16 MG/DL (7-18); CALCIUM LEVEL 9.4 MG/DL (8.8-10.2); CARBON DIOXIDE LEVEL 29 MEQ/L (21-32); CHLORIDE LEVEL 106 MEQ/L (98-107); CHOLESTEROL LEVEL 157 MG/DL (<200); CHOLESTEROL RISK RATIO 3.078 (<5); CREATININE FOR GFR 0.78 MG/DL (0.70-1.30); GLOMERULAR FILTRATION RATE > 60.0 (>49); GLUCOSE, FASTING 95 MG/DL (70-100); HDL CHOLESTEROL 51 MG/DL (>40); LDL CHOLESTEROL 96 MG/DL (<100); NON-HDL-C 106 MG/DL; POTASSIUM SERUM 4.5 MEQ/L (3.5-5.1); SODIUM LEVEL 138 MEQ/L (136-145); TOTAL PROTEIN 7.8 GM/DL (6.4-8.2); TRIGLYCERIDES LEVEL 48 MG/DL (<150)
[2022-02-24 12:47] LABS: CREATININE, URINE 98.5 MG/DL; MAU/CREAT RATIO 715.7 MCG/MG (0.0-30.0)
[2022-02-24 16:51] LABS: HEMOGLOBIN A1c 5.9 %
== END ==
LOC: M LAB 09:31
PROVIDERS: ATTEND Nurse Practitioner Family
DX: Z13.220 Encounter for screening for lipoid disorders (principal); E11.65 Type 2 diabetes mellitus with hyperglycemia

== ENCOUNTER → 2022-09-20 | Outpatient (CLI) | payer BC ==
[2022-09-20 14:46] LABS: BLOOD UREA NITROGEN 16 MG/DL (7-18); CALCIUM LEVEL 9.4 MG/DL (8.8-10.2); CARBON DIOXIDE LEVEL 27 MEQ/L (21-32); CHLORIDE LEVEL 105 MEQ/L (98-107); CREATININE FOR GFR 0.95 MG/DL (0.70-1.30); GLOMERULAR FILTRATION RATE > 60.0 (>49); GLUCOSE, FASTING 137 MG/DL (70-100); POTASSIUM SERUM 4.6 MEQ/L (3.5-5.1); SODIUM LEVEL 140 MEQ/L (136-145)
[2022-09-20 14:54] LABS: HEMOGLOBIN A1c 5.7 %
[2022-09-20 15:21] LABS: CREATININE, URINE 99.5 MG/DL; MAU/CREAT RATIO 1356.7 MCG/MG (0.0-30.0)
== END ==
LOC: M LAB 12:56
PROVIDERS: ATTEND Family Medicine
DX: E11.9 Type 2 diabetes mellitus without complications (principal)

== ENCOUNTER → 2023-04-18 | Outpatient (CLI) | payer BC ==
[2023-04-18 12:53] LABS: APPEARANCE, URINE CLEAR (CLEAR); BACTERIA, URINE AUTO NEGATIVE (NEGATIVE); BILIRUBIN, URINE AUTO NEGATIVE (NEGATIVE); BLOOD, URINE BLOOD 1+ (NEGATIVE); COLOR, URINE YELLOW (YELLOW); GLUCOSE, URINE (UA) AUTO 2+ mg/dL (NEGATIVE); KETONE, URINE AUTO TRACE mg/dL (NEGATIVE); LEUKOCYTE ESTERASE, URINE AUTO TRACE (NEGATIVE); NITRITE, URINE AUTO NEGATIVE (NEGATIVE); PROTEIN, URINE AUTO 3+ mg/dL (NEGATIVE); RBC, URINE AUTO 1 /HPF (0-3); SPECIFIC GRAVITY URINE AUTO 1.025 (1.002-1.035); SQUAMOUS EPITHELIAL CELL UR AU 0 /HPF (0-6); WBC, URINE AUTO 5 /HPF (0-3)
[2023-04-18 13:10] LABS: CREATININE, URINE 119.4 MG/DL; CREATININE,RANDOM URINE 119.4 MG/DL
[2023-04-18 13:47] LABS: MAU/CREAT RATIO 2128.9 MCG/MG (0.0-30.0)
== END ==
LOC: M LAB 12:03
PROVIDERS: ATTEND Family Medicine
DX: E11.29 Type 2 diabetes mellitus with other diabetic kidney complication (principal)

== ENCOUNTER → 2023-09-01 | Outpatient (REF) | payer BC ==
[2023-09-01 17:54] LABS: CREATININE,RANDOM URINE 164.6 MG/DL
[2023-09-01 17:55] LABS: TOTAL PROTEIN,RANDOM URINE 269.7 MG/DL (0.0-14.0)
== END ==
LOC: M LAB REF 16:51
PROVIDERS: ATTEND Internal Medicine Nephrology
DX: E11.21 Type 2 diabetes mellitus with diabetic nephropathy (principal); N18.2 Chronic kidney disease, stage 2 (mild)

== ENCOUNTER → 2023-10-04 | Outpatient (CLI) | payer MEDICARE, BC ==
[~2023-10-04] MED LIST changes: +PEN-61 SC; -PEN1MIS23 SC
== END ==
LOC: M RAD 13:09
PROVIDERS: ATTEND Internal Medicine Nephrology
DX: E11.21 Type 2 diabetes mellitus with diabetic nephropathy (principal); N40.1 Benign prostatic hyperplasia with lower urinary tract symptoms; N28.1 Cyst of kidney, acquired

== ENCOUNTER → 2023-11-03 | Outpatient (REF) | payer MEDICARE, BC, OTHER | LOC: M LAB REF 17:13 | PROVIDERS: ATTEND Internal Medicine Nephrology | DX: N18.2 Chronic kidney disease, stage 2 (mild) (principal) ==

== ENCOUNTER → 2023-12-01 | Outpatient (CLI) | payer MEDICARE, BC, OTHER ==
[2023-12-01 14:12] LABS: CREATININE, URINE 152.4 MG/DL
[2023-12-01 14:13] LABS: ALBUMIN 3.7 G/DL (3.2-5.2); ALKALINE PHOSPHATASE 69 U/L (46-116); ALT/SGPT 24 U/L (7.0-40); AST/SGOT 16 U/L (<34); BILIRUBIN,TOTAL 0.7 MG/DL (0.3-1.2); BLOOD UREA NITROGEN 19 MG/DL (9-23); CALCIUM LEVEL 9.5 MG/DL (8.3-10.6); CARBON DIOXIDE LEVEL 29 MMOL/L (20-31); CHLORIDE LEVEL 106 MMOL/L (98-107); CHOLESTEROL LEVEL 181 MG/DL (<200); CREATININE FOR GFR 0.83 MG/DL (0.70-1.30); GLOMERULAR FILTRATION RATE > 60.0 (>49); GLUCOSE, FASTING 118 MG/DL (74-106); HDL CHOLESTEROL 62.2 MG/DL (>40); LDL CHOLESTEROL 101.4 MG/DL (<100); NON-HDL-C 118.8 MG/DL; POTASSIUM SERUM 4.4 MMOL/L (3.5-5.1); PSA SCREENING 1.03 NG/ML (< 4.00); SODIUM LEVEL 140 MMOL/L (136-145); TRIGLYCERIDES LEVEL 87 MG/DL (<150)
[2023-12-01 14:25] LABS: MALB URINE SIEMENS > 3800.0 MG/L; MAU/CREAT RATIO 2493.4 MCG/MG (0.0-30.0)
== END ==
LOC: M LAB 12:37
PROVIDERS: ATTEND Family Medicine
DX: Z12.5 Encounter for screening for malignant neoplasm of prostate (principal); E11.65 Type 2 diabetes mellitus with hyperglycemia; E11.29 Type 2 diabetes mellitus with other diabetic kidney complication
CPT/HCPCS: 36415; 80053; 80061; 82043; 83036; G0103

== ENCOUNTER → 2023-12-20 | Outpatient (CLI) | payer BC, MEDICARE, OTHER ==
[~2023-12-20] MED LIST changes: +LEVS0.124 SL; +LISI30TA4 PO; +NAPR-837 PO; +TAMS1CAP17 PO
== END ==
LOC: M CARPUL 12:53
PROVIDERS: ATTEND Family Medicine
DX: I35.0 Nonrheumatic aortic (valve) stenosis (principal); R01.1 Cardiac murmur, unspecified

== ENCOUNTER 2023-12-29 07:19 | Day surgery (SDC) | payer BC, MEDICARE, OTHER ==
[~2023-12-29] VITALS: Ht 172.7 cm; Wt 94.4 kg
[2023-12-29] MEDS: NS 1,000 ML IV ONE (06:00)
[~2023-12-29 07:19] MED LIST changes: -LEVS0.124 SL; +LIDOCAINE 2% 100MG/5ML SDV (FOR ANES.) As Ordered ONE; -NAPR-837 PO; +propofoL 200 MG/20 ML VIAL As Ordered ONE
[2023-12-29 08:52] VITALS: TEMP 98.6
[2023-12-29 09:07] VITALS: BP 135/75; O2SAT 94
== END 2023-12-29 09:12 | disposition home or self-care (01) ==
LOC: M OPP 07:19
PROVIDERS: ATTEND Internal Medicine Gastroenterology
DX: Z12.11 Encounter for screening for malignant neoplasm of colon (principal); D12.0 Benign neoplasm of cecum; K63.5 Polyp of colon; K57.30 Diverticulosis of large intestine without perforation or abscess without bleeding; Z79.4 Long term (current) use of insulin; Z79.899 Other long term (current) drug therapy

== ENCOUNTER 2024-03-06 07:17 | Day surgery (SDC) | payer BC, MEDICARE, OTHER ==
[~2024-03-06] VITALS: Ht 172.7 cm; Wt 96.4 kg
[~2024-03-06 07:17] MED LIST changes: -LIDOCAINE 2% 100MG/5ML SDV (FOR ANES.) As Ordered ONE; +PHENYLEPHRINE 10% OPHTH SOL 5ML OS PRN; -propofoL 200 MG/20 ML VIAL As Ordered ONE
[2024-03-06] MEDS ORDERED: fentaNYL 100 MCG/2 ML INJECTION As Ordered ONE (07:56)
[2024-03-06] MEDS ORDERED: MIDAZOLAM INJ 2MG/2ML VIAL As Ordered ONE (07:56)
[2024-03-06] MEDS: TROPICAMIDE 1% OPHTH SOLN 15ML OS SCH (10:24)
[2024-03-06] MEDS: OFLOXACIN 0.3 % (OCUFLOX) OPTH SOL 5ML OS ONE (10:24)
[2024-03-06] MEDS: PHENYLEPHRINE 2.5% OPHTH SOL 2ML OS SCH (10:25)
[2024-03-06] MEDS: ATROPINE SULFATE 1% OPHTH SOLN 2ML BTL OS SCH (10:25)
[2024-03-06] MEDS: LIDOCAINE 3.5 % 1ML OPHTH TOPICAL GEL OU ONE (10:25)
[2024-03-06] MEDS: BSS IRRIG/VANCO(10MG)/TOBRA(5MG)/EPINEPH(1:1000-0.5CC)500ML BAG-ORONLY As Ordered ONE (11:15)
[2024-03-06] MEDS: LIDOCAINE 1% SDV 5ML VIAL As Ordered ONE (11:15)
[2024-03-06] MEDS: CEFUROXIME 1MG/0.1ML INTRACAMERAL INJ As Ordered ONE (11:21)
[2024-03-06 11:28] VITALS: BP 153/78; TEMP 97.5; O2SAT 95
== END 2024-03-06 12:45 | disposition home or self-care (01) ==
LOC: M SDC 07:17
PROVIDERS: ATTEND Ophthalmology
DX: H25.12 Age-related nuclear cataract, left eye (principal); H57.03 Miosis; E11.9 Type 2 diabetes mellitus without complications; I10 Essential (primary) hypertension; Z79.84 Long term (current) use of oral hypoglycemic drugs; Z79.899 Other long term (current) drug therapy; N40.0 Benign prostatic hyperplasia without lower urinary tract symptoms
CPT/HCPCS: 66982; J0697; J2250; J3010; V2632

== ENCOUNTER 2024-03-08 19:45 | Emergency (ER) | payer BC, MEDICARE, OTHER ==
[~2024-03-08] VITALS: Ht 172.7 cm; Wt 96.3 kg
[~2024-03-08 19:45] MED LIST changes: -PHENYLEPHRINE 10% OPHTH SOL 5ML OS PRN
[2024-03-08 19:47] VITALS: TEMP 96.1; O2SAT 97
[2024-03-08 20:48] LABS: BASO # 0.1 10^3/uL (0.0-0.2); BASO % 0.8 % (0.0-1.0); EOS # 0.1 10^3/uL (0.0-0.5); EOS % 1.1 % (0.0-3.0); HEMATOCRIT 43.6 % (42.0-52.0); HEMOGLOBIN 14.9 g/dl (13.5-17.5); LYMPH # 1.2 10^3/uL (1.5-5.0); LYMPH % 9.9 % (24.0-44.0); MEAN CORPUSCULAR HEMOGLOBIN 30.4 pg (27.0-33.0); MEAN CORPUSCULAR HGB CONC 34.2 g/dl (32.0-36.5); MONO # 0.7 10^3/uL (0.0-0.8); MONO % 6.3 % (2.0-8.0); NEUTROPHILS # 9.6 10^3/uL (1.5-8.5); NEUTROPHILS % 81.6 % (36.0-66.0); PLATELET COUNT, AUTOMATED 326 10^3/uL (150-450); WHITE BLOOD COUNT 11.8 10^3/uL (4.0-10.0)
[2024-03-08 21:16] LABS: LIPASE 33 U/L (12-53)
[2024-03-08 21:18] LABS: ALBUMIN 3.6 G/DL (3.2-5.2); ALKALINE PHOSPHATASE 59 U/L (46-116); ALT/SGPT 23 U/L (7.0-40); AST/SGOT 15 U/L (<34); BILIRUBIN,DIRECT 0.2 MG/DL (<0.4); BILIRUBIN,TOTAL 0.4 MG/DL (0.3-1.2); BLOOD UREA NITROGEN 22 MG/DL (9-23); CALCIUM LEVEL 9.5 MG/DL (8.3-10.6); CARBON DIOXIDE LEVEL 28 MMOL/L (20-31); CHLORIDE LEVEL 106 MMOL/L (98-107); CREATININE FOR GFR 1.01 MG/DL (0.70-1.30); GLOMERULAR FILTRATION RATE > 60.0 (>49); GLUCOSE, FASTING 209 MG/DL (74-106); POTASSIUM SERUM 4.5 MMOL/L (3.5-5.1); SODIUM LEVEL 142 MMOL/L (136-145); TOTAL PROTEIN 6.6 G/DL (5.7-8.2)
[2024-03-08 22:47] VITALS: BP 178/84
[2024-03-09] MEDS: ONDANSETRON 4MG 2ML VIAL IV ONE (00:49)
[2024-03-09] MEDS: KETOROLAC 30 MG/ML 1ML VIAL IV ONE (00:49)
[2024-03-09] MEDS ORDERED: LEVS0.124 SL (01:29)
[2024-03-09] MEDS ORDERED: NAPR-837 PO (01:29)
[2024-03-09] MEDS: HYOSCYAMINE SULFATE 0.125 MG SUBL TABLET PO ONE (01:53)
== END 2024-03-09 02:01 | disposition home or self-care (01) ==
LOC: M ED 19:45
DX: K80.66 Calculus of gallbladder and bile duct with acute and chronic cholecystitis without obstruction (principal); N28.1 Cyst of kidney, acquired; K57.30 Diverticulosis of large intestine without perforation or abscess without bleeding; E11.9 Type 2 diabetes mellitus without complications; F10.10 Alcohol abuse, uncomplicated; Z79.811 Long term (current) use of aromatase inhibitors; Z79.4 Long term (current) use of insulin; Z79.899 Other long term (current) drug therapy; Z79.83 Long term (current) use of bisphosphonates
CPT/HCPCS: 74176; 76705; 80048; 80076; 81001; 83690; 85025; 87086; 96374; 99284; J1885; J2405

== ENCOUNTER 2024-03-13 06:23 | Day surgery (SDC) | payer BC, MEDICARE, OTHER ==
[~2024-03-13] VITALS: Ht 172.7 cm; Wt 98.0 kg
[~2024-03-13 06:23] MED LIST changes: +LEVS0.124 SL; +NAPR-837 PO
[2024-03-13] MEDS: ATROPINE SULFATE 1% OPHTH SOLN 2ML BTL OD SCH (07:24)
[2024-03-13] MEDS: OFLOXACIN 0.3 % (OCUFLOX) OPTH SOL 5ML OD ONE (07:24)
[2024-03-13] MEDS: PHENYLEPHRINE 2.5% OPHTH SOL 2ML OD SCH (07:24)
[2024-03-13] MEDS: TROPICAMIDE 1% OPHTH SOLN 15ML OD SCH (07:24)
[2024-03-13] MEDS: LIDOCAINE 3.5 % 1ML OPHTH TOPICAL GEL OU ONE (07:25)
[2024-03-13] MEDS ORDERED: MIDAZOLAM INJ 2MG/2ML VIAL As Ordered ONE (07:57)
[2024-03-13] MEDS ORDERED: fentaNYL 100 MCG/2 ML INJECTION As Ordered ONE (07:57)
[2024-03-13] MEDS: BSS IRRIG/VANCO(10MG)/TOBRA(5MG)/EPINEPH(1:1000-0.5CC)500ML BAG-ORONLY As Ordered ONE (09:47)
[2024-03-13] MEDS: LIDOCAINE 1% SDV 5ML VIAL As Ordered ONE (09:47)
[2024-03-13] MEDS: CEFUROXIME 1MG/0.1ML INTRACAMERAL INJ As Ordered ONE (09:50)
[2024-03-13 09:58] VITALS: BP 149/74; TEMP 96.9; O2SAT 95
[2024-03-13] MEDS: PHENYLEPHRINE 10% OPHTH SOL 5ML OD PRN (10:58)
== END 2024-03-13 10:33 | disposition home or self-care (01) ==
LOC: M SDC 06:23
PROVIDERS: ATTEND Ophthalmology
DX: E11.36 Type 2 diabetes mellitus with diabetic cataract (principal); H25.11 Age-related nuclear cataract, right eye; H57.03 Miosis; I10 Essential (primary) hypertension; N40.0 Benign prostatic hyperplasia without lower urinary tract symptoms; Z79.84 Long term (current) use of oral hypoglycemic drugs; Z79.899 Other long term (current) drug therapy; Z79.4 Long term (current) use of insulin
CPT/HCPCS: 66982; J0697; J2250; J3010; V2632

== ENCOUNTER → 2024-03-29 | Outpatient (REF) | payer BC, MEDICARE, OTHER ==
[2024-03-29 18:16] LABS: CREATININE,RANDOM URINE 148.1 MG/DL
[2024-03-29 18:18] LABS: TOTAL PROTEIN,RANDOM URINE 468.2 MG/DL (0.0-14.0)
== END ==
LOC: M LAB REF 17:07
PROVIDERS: ATTEND Internal Medicine Nephrology
DX: N18.2 Chronic kidney disease, stage 2 (mild) (principal)

== ENCOUNTER → 2024-06-28 | Outpatient (CLI) | payer MEDICARE, BC, OTHER ==
[2024-06-28 12:04] LABS: ALBUMIN 3.4 G/DL (3.2-5.2); ALKALINE PHOSPHATASE 57 U/L (46-116); ALT/SGPT 30 U/L (7.0-40); AST/SGOT 16 U/L (<34); BILIRUBIN,TOTAL 0.6 MG/DL (0.3-1.2); BLOOD UREA NITROGEN 21 MG/DL (9-23); CALCIUM LEVEL 9.4 MG/DL (8.3-10.6); CARBON DIOXIDE LEVEL 26 MMOL/L (20-31); CHLORIDE LEVEL 109 MMOL/L (98-107); CREATININE FOR GFR 1.02 MG/DL (0.70-1.30); GLOMERULAR FILTRATION RATE > 60.0 (>49); GLUCOSE, FASTING 103 MG/DL (74-106); POTASSIUM SERUM 5.2 MMOL/L (3.5-5.1); SODIUM LEVEL 141 MMOL/L (136-145); TOTAL PROTEIN 6.4 G/DL (5.7-8.2)
== END ==
LOC: M LAB 09:59
PROVIDERS: ATTEND Family Medicine
DX: E11.29 Type 2 diabetes mellitus with other diabetic kidney complication (principal)

== ENCOUNTER 2024-07-03 11:00 | Day surgery (SDC) | payer BC, MEDICARE, OTHER ==
[~2024-07-03] VITALS: Ht 172.7 cm; Wt 95.3 kg
[~2024-07-03 11:00] MED LIST changes: +MIDAZOLAM INJ 2MG/2ML VIAL As Ordered ONE; +fentaNYL 100 MCG/2 ML INJECTION As Ordered ONE
[2024-07-03] MEDS: LIDOCAINE 3.5 % 1ML OPHTH TOPICAL GEL OU ONE (12:10)
[2024-07-03] MEDS: POVIDONE-IODINE 5% OPHTH PREP SOL 30ML As Ordered ONE (12:57)
[2024-07-03] MEDS: LIDOCAINE 2% W/EPINEPHRINE 20ML VIAL **PRES FREE As Ordered ONE (13:01)
[2024-07-03] MEDS: TOBRADEX OPHTH OINT 3.5 GM As Ordered ONE (13:01)
[2024-07-03 13:42] VITALS: BP 165/79; TEMP 97.8; O2SAT 96
== END 2024-07-03 14:05 | disposition home or self-care (01) ==
LOC: M SDC 11:00
PROVIDERS: ATTEND Ophthalmology
DX: H02.401 Unspecified ptosis of right eyelid (principal); H02.402 Unspecified ptosis of left eyelid; E11.21 Type 2 diabetes mellitus with diabetic nephropathy; I10 Essential (primary) hypertension; Z89.411 Acquired absence of right great toe; N40.0 Benign prostatic hyperplasia without lower urinary tract symptoms; Z79.4 Long term (current) use of insulin; Z79.84 Long term (current) use of oral hypoglycemic drugs; Z79.899 Other long term (current) drug therapy
CPT/HCPCS: 67904; J2250; J3010

== ENCOUNTER → 2024-09-30 | Outpatient (REF) | payer BC, MEDICARE, OTHER ==
[~2024-09-30] MED LIST changes: -MIDAZOLAM INJ 2MG/2ML VIAL As Ordered ONE; -fentaNYL 100 MCG/2 ML INJECTION As Ordered ONE
[2024-09-30 18:12] LABS: CREATININE,RANDOM URINE 120.8 MG/DL
[2024-09-30 18:16] LABS: TOTAL PROTEIN,RANDOM URINE 540.3 MG/DL (0.0-14.0)
== END ==
LOC: M LAB REF 17:19
PROVIDERS: ATTEND Internal Medicine Nephrology
DX: N18.2 Chronic kidney disease, stage 2 (mild) (principal)

== ENCOUNTER → 2025-04-03 | Outpatient (CLI) | payer MEDICARE, BC, OTHER ==
[2025-04-03 08:31] LABS: BASO # 0.1 10^3/uL (0.0-0.2); BASO % 1.4 % (0.0-1.0); EOS # 0.3 10^3/uL (0.0-0.5); EOS % 4.2 % (0.0-3.0); HEMOGLOBIN 15.6 g/dl (13.5-17.5); LYMPH # 1.7 10^3/uL (1.5-5.0); MEAN CORPUSCULAR HEMOGLOBIN 30.5 pg (27.0-33.0); MEAN CORPUSCULAR HGB CONC 34.7 g/dl (32.0-36.5); MEAN CORPUSCULAR VOLUME 87.9 fl (80.0-96.0); MONO # 0.7 10^3/uL (0.0-0.8); MONO % 8.9 % (2.0-8.0); NEUTROPHILS # 5.2 10^3/uL (1.5-8.5); NEUTROPHILS % 64.1 % (36.0-66.0); PLATELET COUNT, AUTOMATED 301 10^3/uL (150-450); RED BLOOD COUNT 5.12 10^6/uL (4.30-6.10); WHITE BLOOD COUNT 8.1 10^3/uL (4.0-10.0)
[2025-04-03 08:36] LABS: CREATININE, URINE 97.1 MG/DL
[2025-04-03 08:51] LABS: MALB URINE SIEMENS > 3800.0 MG/L; MAU/CREAT RATIO 3913.4 MCG/MG (0.0-30.0)
[2025-04-03 09:03] LABS: HEMOGLOBIN A1c 6.3 % (4.0-6.0)
[2025-04-03 09:08] LABS: ALBUMIN 3.4 G/DL (3.2-5.2); BILIRUBIN,TOTAL 0.5 MG/DL (0.3-1.2); CALCIUM LEVEL 9.3 MG/DL (8.3-10.6); CHOLESTEROL RISK RATIO 3.09 (<5); CREATININE FOR GFR 0.96 MG/DL (0.70-1.30); GLOMERULAR FILTRATION RATE 87.2 (>49); HDL CHOLESTEROL 60.5 MG/DL (>40); LDL CHOLESTEROL 115.9 MG/DL (<100); NON-HDL-C 126.5 MG/DL; POTASSIUM SERUM 4.5 MMOL/L (3.5-5.1); TOTAL PROTEIN 6.8 G/DL (5.7-8.2)
== END ==
LOC: M LAB 07:59
PROVIDERS: ATTEND Family Medicine
DX: E11.29 Type 2 diabetes mellitus with other diabetic kidney complication (principal); E78.5 Hyperlipidemia, unspecified

== ENCOUNTER → 2025-04-30 | Outpatient (REF) | payer BC, MEDICARE, OTHER ==
[~2025-04-30] MED LIST changes: +LISI40TA10 PO; +OMEP40CA4 PO; +SUCR1TA PO
[2025-04-30 18:33] LABS: CREATININE,RANDOM URINE 198.3 MG/DL
[2025-04-30 18:35] LABS: TOTAL PROTEIN,RANDOM URINE 483.8 MG/DL (0.0-14.0)
== END ==
LOC: M LAB REF 17:10
PROVIDERS: ATTEND Internal Medicine Nephrology
DX: E11.21 Type 2 diabetes mellitus with diabetic nephropathy (principal)

== ENCOUNTER → 2025-05-13 | Day surgery (SDC) | payer BC, MEDICARE, OTHER ==
[~2025-05-13] VITALS: Ht 172.7 cm; Wt 95.3 kg
[~2025-05-13] MED LIST changes: +GLYCOPYRROLATE INJ 0.2 MG/ML 2 ML VIAL As Ordered ONE; +LIDOCAINE 2% 100 MG/5 ML SDV (FOR ANES.) As Ordered ONE; +propofoL 200 MG/20 ML VIAL As Ordered ONE
[2025-05-13 08:59] VITALS: TEMP 97.2
[2025-05-13 09:25] VITALS: BP 135/86; O2SAT 95
== END | disposition home or self-care (01) ==
LOC: M OPP 07:22
PROVIDERS: ATTEND Internal Medicine Gastroenterology
DX: D12.0 Benign neoplasm of cecum (principal); K64.8 Other hemorrhoids; K57.30 Diverticulosis of large intestine without perforation or abscess without bleeding; Z86.0101 Personal history of adenomatous and serrated colon polyps; Z79.4 Long term (current) use of insulin; Z79.84 Long term (current) use of oral hypoglycemic drugs; Z79.899 Other long term (current) drug therapy
CPT/HCPCS: 45385; 88305; J1596

== ENCOUNTER → 2025-07-10 | Outpatient (CLI) | payer BC, MEDICARE, OTHER ==
[~2025-07-10] MED LIST changes: -GLYCOPYRROLATE INJ 0.2 MG/ML 2 ML VIAL As Ordered ONE; -LIDOCAINE 2% 100 MG/5 ML SDV (FOR ANES.) As Ordered ONE; -propofoL 200 MG/20 ML VIAL As Ordered ONE
== END ==
LOC: M CARPUL 16:11
PROVIDERS: ATTEND Family Medicine
DX: R01.1 Cardiac murmur, unspecified (principal); R06.02 Shortness of breath

== ENCOUNTER → 2025-07-25 | Outpatient (REF) | payer BC, OTHER ==
[2025-07-25 18:03] LABS: ALT/SGPT 27.0 U/L (7.0-40); AST/SGOT 17.0 U/L (<34); CALCIUM LEVEL 9.3 MG/DL (8.3-10.6); CARBON DIOXIDE LEVEL 23.0 MMOL/L (20-31); CHLORIDE LEVEL 107.0 MMOL/L (98-107); CHOLESTEROL LEVEL 156.0 MG/DL (<200); CHOLESTEROL RISK RATIO 2.99 (<5); CREATININE FOR GFR 1.08 MG/DL (0.70-1.30); GLOMERULAR FILTRATION RATE 75.7 (>49); LDL CHOLESTEROL 84.7 MG/DL (<100); NON-HDL-C 103.9 MG/DL; POTASSIUM SERUM 4.7 MMOL/L (3.5-5.1); SODIUM LEVEL 142.0 MMOL/L (136-145); TRIGLYCERIDES LEVEL 96.0 MG/DL (<150)
[2025-07-25 18:04] LABS: BASO # 0.1 10^3/uL (0.0-0.2); BASO % 0.9 % (0.0-1.0); EOS # 0.3 10^3/uL (0.0-0.5); EOS % 3.0 % (0.0-3.0); LYMPH # 1.7 10^3/uL (1.5-5.0); LYMPH % 17.2 % (24.0-44.0); MONO # 0.9 10^3/uL (0.0-0.8); MONO % 8.4 % (2.0-8.0); NEUTROPHILS # 7.1 10^3/uL (1.5-8.5); NEUTROPHILS % 70.0 % (36.0-66.0); PLATELET COUNT, AUTOMATED 334 10^3/uL (150-450)
== END ==
LOC: M SFHCLERA 13:37
DX: I35.0 Nonrheumatic aortic (valve) stenosis (principal)

== ENCOUNTER 2025-07-27 07:52 | Emergency (ER) | payer BC, MEDICARE, OTHER ==
[~2025-07-27] VITALS: Ht 172.7 cm; Wt 97.3 kg
[2025-07-27 09:10] LABS: VENOUS BASE EXCESS -0.9 (-2.0-2.0); VENOUS HCO3 22.1 MMOL/L (23.0-27.0); VENOUS O2 SATURATION 71.0 % (60.0-80.0); VENOUS PARTIAL PRESSURE CO2 32.3 mmHg (38.0-50.0); VENOUS PARTIAL PRESSURE O2 34.3 mmHg (30.0-50.0); VENOUS PH 7.453 UNITS (7.330-7.430); VENOUS STANDARD HCO3 23.1 MMOL/L; VENOUS TOTAL CO2 23.1 MMOL/L (24.0-28.0)
[2025-07-27 09:12] LABS: BASO # 0.1 10^3/uL (0.0-0.2); BASO % 1.3 % (0.0-1.0); EOS # 0.2 10^3/uL (0.0-0.5); EOS % 2.7 % (0.0-3.0); LYMPH # 1.5 10^3/uL (1.5-5.0); LYMPH % 20.1 % (24.0-44.0); MONO # 0.7 10^3/uL (0.0-0.8); MONO % 9.5 % (2.0-8.0); NEUTROPHILS # 5.1 10^3/uL (1.5-8.5); NEUTROPHILS % 65.9 % (36.0-66.0); PLATELET COUNT, AUTOMATED 322 10^3/uL (150-450)
[2025-07-27] MEDS ORDERED: ISOVUE-370 76% 100 ML VIAL As Ordered ONE (09:17)
[2025-07-27 09:34] LABS: CPK CREATINE PHOSPHOKINASE 67.0 U/L (46-171)
[2025-07-27 09:42] LABS: ALT/SGPT 24.0 U/L (7.0-40); AST/SGOT 15.0 U/L (<34); CALCIUM LEVEL 9.4 MG/DL (8.3-10.6); CARBON DIOXIDE LEVEL 22.0 MMOL/L (20-31); CHLORIDE LEVEL 108.0 MMOL/L (98-107); CK-MB VALUE MASS 4.0 NG/ML (<3.6); CREATININE FOR GFR 0.98 MG/DL (0.70-1.30); FREE T4 1.37 NG/DL (0.89-1.76); GLOMERULAR FILTRATION RATE 85.0 (>49); MB/CK RELATIVE INDEX 5.97 (< OR =4); POTASSIUM SERUM 4.6 MMOL/L (3.5-5.1); SODIUM LEVEL 142.0 MMOL/L (136-145)
[2025-07-27 10:43] LABS: CK-MB VALUE MASS 3.4 NG/ML (<3.6)
[2025-07-27 10:44] LABS: CPK CREATINE PHOSPHOKINASE 63.0 U/L (46-171); MB/CK RELATIVE INDEX 5.39 (< OR =4)
[2025-07-27 11:30] VITALS: BP 139/77; O2SAT 97
[2025-07-27 11:40] VITALS: TEMP 97.7
== END 2025-07-27 11:47 | disposition home or self-care (01) ==
LOC: M ED 07:52
DX: R06.00 Dyspnea, unspecified (principal); I70.0 Atherosclerosis of aorta; I45.10 Unspecified right bundle-branch block; I44.4 Left anterior fascicular block; E11.9 Type 2 diabetes mellitus without complications; I10 Essential (primary) hypertension; F10.10 Alcohol abuse, uncomplicated; Z90.89 Acquired absence of other organs; Z79.4 Long term (current) use of insulin; Z79.899 Other long term (current) drug therapy
CPT/HCPCS: 36415; 71045; 71275; 80047; 80048; 80076; 82550; 82553; 82803; 83605; 83690; 83880; 84145; 84439; 84443; 84484; 85025; 87486; 87581; 87633; 87798; 93005; 93041; 94760; 99285; Q9967

== ENCOUNTER 2025-08-04 08:38 | Emergency (ER) | payer BC, MEDICARE, OTHER ==
[~2025-08-04] VITALS: Ht 172.7 cm; Wt 97.7 kg
[2025-08-04] MEDS ORDERED: HOME MED LIST COMPLETE! XX SCH (09:35)
[2025-08-04 09:36] LABS: BASO # 0.1 10^3/uL (0.0-0.2); BASO % 1.3 % (0.0-1.0); EOS # 0.3 10^3/uL (0.0-0.5); EOS % 2.9 % (0.0-3.0); LYMPH # 1.8 10^3/uL (1.5-5.0); LYMPH % 20.2 % (24.0-44.0); MONO # 0.8 10^3/uL (0.0-0.8); MONO % 9.0 % (2.0-8.0); NEUTROPHILS # 5.7 10^3/uL (1.5-8.5); NEUTROPHILS % 65.8 % (36.0-66.0); PLATELET COUNT, AUTOMATED 328 10^3/uL (150-450)
[2025-08-04 09:54] LABS: INR 0.91
[2025-08-04 10:21] LABS: ALT/SGPT 25 U/L (7.0-40); AST/SGOT 18 U/L (<34); CALCIUM LEVEL 9.6 MG/DL (8.3-10.6); CARBON DIOXIDE LEVEL 22 MMOL/L (20-31); CHLORIDE LEVEL 107 MMOL/L (98-107); CK-MB VALUE MASS 3.7 NG/ML (<3.6); CPK CREATINE PHOSPHOKINASE 86 U/L (46-171); CREATININE FOR GFR 0.89 MG/DL (0.70-1.30); GLOMERULAR FILTRATION RATE > 90.0 (>49); MB/CK RELATIVE INDEX 4.30 (< OR =4); POTASSIUM SERUM 4.7 MMOL/L (3.5-5.1); SODIUM LEVEL 141 MMOL/L (136-145)
[2025-08-04 10:44] LABS: VENOUS BASE EXCESS -2.0 (-2.0-2.0); VENOUS HCO3 22.4 MMOL/L (23.0-27.0); VENOUS O2 SATURATION 86.3 % (60.0-80.0); VENOUS PARTIAL PRESSURE CO2 37.1 mmHg (38.0-50.0); VENOUS PARTIAL PRESSURE O2 48.8 mmHg (30.0-50.0); VENOUS PH 7.398 UNITS (7.330-7.430); VENOUS STANDARD HCO3 22.5 MMOL/L; VENOUS TOTAL CO2 23.5 MMOL/L (24.0-28.0)
[2025-08-04 11:42] LABS: CK-MB VALUE MASS 3.3 NG/ML (<3.6)
[2025-08-04 11:43] LABS: CPK CREATINE PHOSPHOKINASE 80.0 U/L (46-171); MB/CK RELATIVE INDEX 4.12 (< OR =4)
[2025-08-04] MEDS ORDERED: ISOVUE-370 76% 100 ML VIAL As Ordered ONE (12:29)
[2025-08-04 16:01] VITALS: BP 165/77; TEMP 98.7; O2SAT 98
== END 2025-08-04 16:07 | disposition short-term general hospital (02) ==
LOC: M ED 08:38
DX: R06.02 Shortness of breath (principal); I70.0 Atherosclerosis of aorta; I25.84 Coronary atherosclerosis due to calcified coronary lesion; M47.814 Spondylosis without myelopathy or radiculopathy, thoracic region; I45.10 Unspecified right bundle-branch block; I44.4 Left anterior fascicular block; E11.9 Type 2 diabetes mellitus without complications; Z79.4 Long term (current) use of insulin; Z79.899 Other long term (current) drug therapy
CPT/HCPCS: 36415; 71045; 71275; 80048; 80076; 82550; 82553; 82803; 83605; 83880; 84145; 84443; 84484; 85025; 85610; 87040; 87077; 87154; 87486; 87581; 87633; 87798; 93005; 93041; 94760; 99285; Q9967

== ENCOUNTER 2025-08-25 09:42 | Emergency (ER) | payer BC, MEDICARE, OTHER ==
[~2025-08-25] VITALS: Ht 172.7 cm; Wt 90.9 kg
[2025-08-25 12:00] LABS: VENOUS BASE EXCESS -1.9 (-2.0-2.0); VENOUS HCO3 20.9 MMOL/L (23.0-27.0); VENOUS O2 SATURATION 52.5 % (60.0-80.0); VENOUS PARTIAL PRESSURE CO2 30.6 mmHg (38.0-50.0); VENOUS PARTIAL PRESSURE O2 24.7 mmHg (30.0-50.0); VENOUS PH 7.452 UNITS (7.330-7.430); VENOUS STANDARD HCO3 21.8 MMOL/L; VENOUS TOTAL CO2 21.8 MMOL/L (24.0-28.0)
[2025-08-25 12:09] LABS: BASO # 0.1 10^3/uL (0.0-0.2); BASO % 1.0 % (0.0-1.0); EOS # 0.2 10^3/uL (0.0-0.5); EOS % 1.9 % (0.0-3.0); LYMPH # 1.8 10^3/uL (1.5-5.0); LYMPH % 20.4 % (24.0-44.0); MONO # 0.9 10^3/uL (0.0-0.8); MONO % 9.7 % (2.0-8.0); NEUTROPHILS # 5.9 10^3/uL (1.5-8.5); NEUTROPHILS % 66.7 % (36.0-66.0); PLATELET COUNT, AUTOMATED 304 10^3/uL (150-450)
[2025-08-25 12:39] LABS: CK-MB VALUE MASS 2.6 NG/ML (<3.6)
[2025-08-25 12:41] LABS: CPK CREATINE PHOSPHOKINASE 85.0 U/L (46-171); MB/CK RELATIVE INDEX 3.05 (< OR =4)
[2025-08-25 12:42] LABS: ALT/SGPT 19.0 U/L (7.0-40); AST/SGOT 15.0 U/L (<34); CALCIUM LEVEL 9.8 MG/DL (8.3-10.6); CARBON DIOXIDE LEVEL 23.0 MMOL/L (20-31); CHLORIDE LEVEL 105.0 MMOL/L (98-107); CREATININE FOR GFR 0.98 MG/DL (0.70-1.30); GLOMERULAR FILTRATION RATE 85.0 (>49); POTASSIUM SERUM 4.8 MMOL/L (3.5-5.1); SODIUM LEVEL 139.0 MMOL/L (136-145); THYROXINE (T4) 7.2 UG/DL (4.5-10.9)
[2025-08-25] MEDS ORDERED: ISOVUE-370 76% 100 ML VIAL As Ordered ONE (13:12)
[2025-08-25 13:47] LABS: CK-MB VALUE MASS 1.8 NG/ML (<3.6)
[2025-08-25 13:48] LABS: CPK CREATINE PHOSPHOKINASE 70.0 U/L (46-171); MB/CK RELATIVE INDEX 2.57 (< OR =4)
[2025-08-25 14:44] VITALS: BP 137/77; TEMP 98.5; O2SAT 95
== END 2025-08-25 14:54 | disposition home or self-care (01) ==
LOC: M ED 09:42
DX: R42 Dizziness and giddiness (principal); R06.02 Shortness of breath; I35.0 Nonrheumatic aortic (valve) stenosis; I25.84 Coronary atherosclerosis due to calcified coronary lesion; R00.1 Bradycardia, unspecified; I45.10 Unspecified right bundle-branch block; E11.9 Type 2 diabetes mellitus without complications; I10 Essential (primary) hypertension; N40.0 Benign prostatic hyperplasia without lower urinary tract symptoms; Z79.4 Long term (current) use of insulin; Z79.899 Other long term (current) drug therapy
CPT/HCPCS: 36415; 71045; 71275; 80048; 80076; 82550; 82553; 82803; 83880; 84436; 84443; 84484; 85025; 87486; 87581; 87633; 87798; 93005; 93041; 94760; 99285; Q9967

== ENCOUNTER → 2025-10-16 | Outpatient (CLI) | payer BC, MEDICARE, OTHER ==
[2025-10-16 16:12] LABS: ALT/SGPT 19.0 U/L (7.0-40); AST/SGOT 14.0 U/L (<34); CALCIUM LEVEL 9.4 MG/DL (8.3-10.6); CARBON DIOXIDE LEVEL 27.0 MMOL/L (20-31); CHLORIDE LEVEL 108.0 MMOL/L (98-107); CREATININE FOR GFR 1.1 MG/DL (0.70-1.30); GLOMERULAR FILTRATION RATE 73.6 (>49); POTASSIUM SERUM 4.4 MMOL/L (3.5-5.1); SODIUM LEVEL 144.0 MMOL/L (136-145)
[2025-10-16 16:34] LABS: ESTIMATED AVERAGE GLUCOSE 143.0 MG/DL (60-110)
== END ==
LOC: M LAB 14:51
PROVIDERS: ATTEND Family Medicine
DX: E11.9 Type 2 diabetes mellitus without complications (principal)